=== PATIENT | male | born 1970 | race Caucasian/White ===

== ENCOUNTER 2024-07-22 12:16 | Inpatient (IN) ==
--- NOTE | 2024-07-22 12:54 | Emergency Department Note ---
Impression & Plan Diabetes mellitus with foot ulcer and gangrene, Thrombocytosis, PVD (peripheral vascular disease) ED Provider Note Provider: Mason Griffith MD CHIEF COMPLAINT: Right foot necrosis/infection HISTORY OF PRESENT ILLNESS: Patient is a 53-year-old gentleman with history of type 2 diabetes, hyperlipidemia, hypertension, reported CABG as well as right arterial bypass x 2 presenting here today reporting staff at the correction convinced him to seek evaluation for his right foot. States he noticed little blackness of the right foot in September approximately 11 months ago now. Has had bypass of the arteries in his right leg in 2012 and 2020 by his report. Previously on warfarin but not currently. States has been taking his medications and blood sugars have been in the 100s to 150s. Denies significant trauma. Since September this black area spread and in April saw Who had recommended amputation of this leg due to necrosis/infection. He did not wish for this. Now on the [facility] locally and they convinced him to come in to be evaluated today. States they did iodine and bandaged the foot and have been doing bandaging for some time. Patient reports he had blood work on Saturday. Denies fever or chills. Reports some pain to the right foot/leg. Has been using tramadol and Tylenol to present for pain. Does not want to have an amputation of his right foot but is agreeable to see a utilization review specialist. Patient does have pain with amputation. Outpatient blood work available from the correction indicate that he had a white blood cell count of 17,000 on Saturday, platelet count over 1 million, hemoglobin of 8.3, creatinine of 0.59, potassium 5.2, C-reactive protein of 14.5 and ESR of 127. PAST MEDICAL HISTORY: As noted above MEDICATIONS: Reviewed medication list SOCIAL HISTORY: Inmate's state correctional situation at this time, smoking history PHYSICAL EXAM: GENERAL: alert and oriented in no acute distress on stretcher handcuffed with guards at bedside Head: normocephalic and atraumatic EYES: No injection, discharge or icterus. EOMI. NECK: Trachea midline. Supple. ENT: Mucous membranes pink and moist. LUNGS: Airway patent. No retractions or tachypnea HEART: Regular rate and rhythm. No chest wall tenderness ABDOMEN: Soft and non-tender, without guarding or rebound. SKIN: Acyanotic, warm, dry, without rashes EXTREMITIES: With some trace swelling of the left lower extremity. The right lower extremity is well-healed scar in the right medial distal thigh to the right medial upper leg. There are some erythema around the ankle region and about [facility] into the midfoot there is changed to open wound and black necrosis as well as some redness and erythematous skin. Foul odor. No significant discharge appreciable. NEUROLOGICAL: No aphasia. No facial droop or slurred speech. Normal strength and tone in the extremities. Sensation to gross touch normal in extremities and actually does have some sensation even in the distal toes on the right foot. CONTINUOUS CARDIAC MONITORING: was ordered and showed a heart rate of 70s-80s bpm in normal sinus rhythm Patient's laboratory studies and imaging reviewed. Differential includes Cellulitis, abscess, MRSA infection, DVT, necrotizing fasciitis, gangrene, osteomyelitis, dermatitis, sepsis, PAD, as well as other pathologies. IMPRESSION/MEDICAL DECISION MAKING: Patient in no distress. Not febrile. Outpatient blood work in the correction noted and available paperwork showing an elevated inflammatory markers and white blood cell count. Patient denies fever however. Foot is in a poor state. There is evidence of some necrosis as well as looks like some areas of erythema and infection. Will obtain x-ray of this area and repeat blood work here today. Patient has had bypass x 2 in the past and while there is some erythema in the ankle region from the midfoot distally necrotic findings do question if there is vascular flow. Will obtain an ultrasound of the leg. None of this is acute and seems to have developed over some months. Blood work today with worsened white blood cell count of 20. ESR and CRP are both significantly elevated as well. Lactate is mildly elevated and 2 L of IV fluid ordered. Given the swelling in his legs including the left one without the gangrene infection wish to be careful to avoid fluid overload. Patient again does not want to have an amputation. Discussed with him bringing him to the hospital for formal consultation of orthopedic/podiatry/vascular for further possible information. This is chronic in nature and do not believe this is necrotizing fasciitis or rapidly expanding infection. There is not a lot of purulence for me to culture at this time. Lactate mildly elevated. Blood pressure initially low but soft and given IV fluid resuscitation and covered broadly with Zosyn and daptomycin in case evolving sepsis is occurring however. Patient again continues to state that he is going to with both of his feet. Arterial Doppler study pending results but believes likely with some amount of PAD given his history and presentation. DIAGNOSIS: Right foot gangrene, type 2 diabetes DISPOSITION: Hospitalist will evaluate Patient was agreeable with this plan. Past Med/Surg History Problem List (Updated 07/22/24 @ 18:14 by Mason Griffith M.D.) Thrombocytosis (Acute) Anemia CAD (coronary artery disease) HLD (hyperlipidemia) HTN (hypertension) Diabetes mellitus, type II PVD (peripheral vascular disease) (Acute) Osteomyelitis Gangrene of right foot Diabetes mellitus with foot ulcer and gangrene (Acute) Surgical History (Updated 07/22/24 @ 16:14 by Cecelia Tucker PA-C) History of vascular surgery History of heart bypass surgery Social History Smoking Status: Former smoker Hx Alcohol Use: No Hx Substance Use: Yes Last Used Substance Other:: stopped crack and thc in 2005 Preferred Language: Citizen Of [place] Communication Ability: Effective Contamination Consultant Required: No Beliefs That Will Affect Care: None Current Living Situation: Other Current Living Situation Comment: inmate Feels Safe at Home: Yes Safety Concerns: Feels Safe At This Time Assistive Devices: Wheelchair Allergies Allergies Allergy/AdvReac Type Severity Reaction Status Date / Time No Known Allergies Allergy Unverified 07/22/24 15:37 Home Meds Home Medications Medication Instructions Recorded Confirmed acetaminophen 500 mg tablet 1,000 mg PO QID 07/22/24 07/22/24 aspirin 81 mg tablet,delayed 81 mg PO DAILY 07/22/24 07/22/24 release clopidogrel 75 mg tablet 75 mg PO DAILY 07/22/24 07/22/24 gabapentin 300 mg capsule 300 mg PO BID 07/22/24 07/22/24 glipizide 2.5 mg tablet 2.5 mg PO DAILY 07/22/24 07/22/24 insulin regular human 100 unit/mL 1 sliding scale dose subcut 07/22/24 07/22/24 injection solution (Novolin R USEASDIRECTD Regular U-100 Insulin) metformin 1,000 mg tablet 1,000 mg PO BID 07/22/24 07/22/24 metoprolol tartrate 50 mg tablet 50 mg PO BID 07/22/24 07/22/24 rosuvastatin 20 mg tablet 20 mg PO HS 07/22/24 07/22/24 tramadol 50 mg tablet 100 mg PO TID 07/22/24 07/22/24 Results & Data (ED) Vital Signs Vital Signs - 24 hr 07/22/24 12:19 07/22/24 13:41 07/22/24 15:00 Temperature 36.6 C Temperature Source Temporal Artery Scan Pulse Rate 95 H Pulse Rate [Right Finger] 87 82 Pulse Rhythm [Right Finger] Regular Pulse Strength [Right Finger] Normal Respiratory Rate 18 19 16 Respiratory Effort / Characteristics Non-Labored Spontaneous Non-Labored Spontaneous Non-Labored Respiratory Depth Normal Normal Normal Respiratory Pattern Regular Regular Blood Pressure 112/69 Blood Pressure [Left Arm] 92/61 L 131/72 Blood Pressure Mean 83 Blood Pressure Mean [Left Arm] 71 91 Pulse Oximetry 100 100 100 Oxygen Delivery Method Room Air Room Air Room Air Sepsis Recent Fever Within 48 Hours No Sepsis New/Unexplained Change in Mental Status N/A Sepsis Action Taken by Nursing No Action Required Laboratory Data 07/22/24 13:10 07/22/24 13:10 Lab Results 07/22/24 07/22/24 07/22/24 Range/Units 13:10 15:02 15:08 WBC 20.00 H (4.8-10.8) K/ul RBC 3.62 L (4.70-6.10) M/uL Hgb 7.9 L (14.0-18.0) g/dl Hct 26.1 L (42.0-52.0) % MCV 72.1 L (80.0-100.0) fL MCH 21.8 L (25.0-34.0) pg MCHC 30.3 L (32.0-36.0) g/dL RDW Std Deviation 45.0 (36.4-46.3) fL RDW Coeff of Jaki 17.3 H (11.5-14.5) % Plt Count 1068 H* (130-400) K/uL MPV 9.1 L (9.4-12.4) fL Immature Gran % (Auto) 0.5 % Neut % (Auto) 70.2 % Lymph % (Auto) 21.8 % Evangeline % (Auto) 6.8 % Eos % (Auto) 0.4 % Baso % (Auto) 0.3 % Reticulocyte % (Auto) 1.52 (0.50-2.00) % Neut # (Auto) 14.06 H (1.40-6.50) K/uL Lymph # (Auto) 4.35 H (1.20-3.40) K/uL Evangeline # (Auto) 1.35 H (0.11-0.59) K/uL Eos # (Auto) 0.08 (0.00-0.50) K/uL Baso # (Auto) 0.06 (0.00-0.20) K/uL Reticulocyte # 0.060 (0.020-0.100) 10^6/uL Immature Gran # (Auto) 0.10 (0.01-0.20) K/uL Hypochromasia Present Microcytosis Present Stomatocytes 1+ ESR 117 H (0-20) mm/hr Sodium 133 L (136-145) mmol/L Potassium 4.3 (3.5-5.1) mmol/L Chloride 95 L (98-107) mmol/L Carbon Dioxide 28 (21-32) mmol/L Anion Gap 10 (3-11) BUN 16 (6-23) mg/dl Creatinine 0.61 (0.6-1.4) mg/dl Est Cr Clr Drug Dosing Not Reportable eGFR 116.29 BUN/Creatinine Ratio 26.2 H (10-20) Glucose 81 (70-99(Fasting)) mg/dl Lactate 2.6 H* 2.9 H* (0.4-2.0) mmol/L Calcium 9.4 (8.6-10.3) mg/dl Total Bilirubin 0.3 (0.2-1.0) mg/dl AST 8 L (13-39) U/L ALT 6 L (7-52) U/L Alkaline Phosphatase 114 H (34-104) U/L C-Reactive Protein 15.07 H (0-0.5) mg/dl Total Protein 8.0 (6.0-8.3) gm/dl Albumin 2.9 L (3.4-5.0) gm/dl Globulin 5.1 H (2.5-4.0) gm/dl Albumin/Globulin Ratio 0.6 L (0.9-2) Procalcitonin 0.12 (0-0.5) ng/ml SARS-CoV-2, RNA, NAAT NEGATIVE (NEGATIVE) Administered Medications Daptomycin 450 mg/ Syringe 9 mls @ 4.5 mls/min IV Q24H [facility]; Protocol Stop: 07/24/24 14:44 Last Admin: 07/22/24 15:08 Dose: 4.5 mls/min Documented By: KONSTANTIN Discontinued Medications Fentanyl Citrate (Fentanyl Citrate Pf 100 Mcg/2 Ml Vial) 25 mcg IV NOW STA Stop: 07/22/24 12:48 Last Admin: 07/22/24 13:20 Dose: 25 mcg Documented By: MIRIAM Piperacillin Sod/Tazobactam Sod (Zosyn) 4.5 gm in 100 mls @ 200 mls/hr IV NOW ONE; Protocol Stop: 07/22/24 14:17 Last Infusion: 07/22/24 16:05 Dose: Infused Documented By: Admin: 07/22/24 15:31 Dose: 200 mls/hr Documented By: KONSTANTIN Sodium Chloride (Nss) 1,000 mls @ 999 mls/hr IV .Q1H1M K[place]ILLE Stop: 07/22/24 16:00 Last Infusion: 07/22/24 16:26 Dose: Infused Documented By: Admin: 07/22/24 15:48 Dose: 999 mls/hr Documented By: Infusion: 07/22/24 15:30 Dose: Infused Documented By: Admin: 07/22/24 14:28 Dose: 999 mls/hr Documented By: CAROLINA Sodium Chloride (Nss) 500 mls @ 999 mls/hr IV .Q31M ONE Stop: 07/22/24 15:21 Last Infusion: 07/22/24 17:51 Dose: Infused Documented By: [facility] Admin: 07/22/24 16:26 Dose: 999 mls/hr Documented By: Imaging Data Radiologist's Impression: Duplex Scan Lower Extremity Artery 07/22/24 12:45 RIGHT LOWER EXTREMITY ARTERIAL DOPPLER ULTRASOUND CLINICAL HISTORY: Necrosis, hx art bypass x2 COMPARISON STUDY: No previous studies for comparison. TECHNIQUE: Color and duplex Doppler sonography of the arterial system of the right lower extremity was attempted. FINDINGS: This exam was significantly compromised given difficulty positioning. A mildly enlarged right inguinal lymph node measures 3.3 x 2.3 x 1.8 cm. This contains a fatty hilum and is likely reactive. There is extensive plaque within the right lower extremity. The right common femoral artery is patent with triphasic flow. The right superficial femoral and popliteal arteries are occluded, likely chronic. In addition, a right lower extremity bypass graft is also occluded. There is dampened, monophasic flow within the right posterior tibial and anterior tibial arteries through collaterals. The right dorsalis pedis and peroneal arteries are occluded. IMPRESSION: 1. Extensive atherosclerotic plaque within the right lower extremity with occlusion of the right superficial femoral and popliteal arteries, likely chronic. Technically difficult exam, as described above. 2. Age indeterminate occlusion of a right lower extremity bypass graft. 3. Significantly diminished flow within the right calf vessels with monophasic flow within the right anterior tibial and posterior tibial arteries. Occluded dorsalis pedis and peroneal arteries. ACT 112: Negative or not required by law. Electronically signed by: Braulio Kenny M.D. 07/22/2024 3:25 PM Foot X-Ray 07/22/24 12:45 XR foot RT min 3V routine HISTORY: 53 years-old Male necorsis/osteo? Chronic right foot pain with soft tissue infection COMPARISON: None TECHNIQUE: 3 views of the right foot FINDINGS: Diffuse soft tissue swelling with prominent amount of soft tissue gas throughout the forefoot and midfoot. Arterial calcifications. Postoperative changes including prior resection of the first distal phalanx and fifth metatarsal head. Demineralized appearance of the bones with mostly mild multifocal osteoarthritis. The soft tissue gas limits evaluation of the osseous structures of the forefoot. Equivocal small bony erosions involving the base of the fifth proximal phalanx. No acute fracture, dislocation or definitive additional acute osseous erosion identified by radiography. IMPRESSION: 1. Equivocal small osseous erosions/osteomyelitis within the base of the fifth proximal phalanx. 2. Diffuse soft tissue swelling with large amount of soft tissue gas suggestive of a gas-forming organism/gas gangrene. 3. Postoperative and degenerative changes as above. ACT 112: Negative or not required by law. The above report was generated using voice recognition software. It may contain grammatical, syntax or spelling errors. Electronically signed by: Kingsley Patel M.D. 07/22/2024 1:36 PM Discharge Plan Visit Data Chief Complaint: Foot Injury/Pain Stated Complaint: NECORTIC RT FOOT ED Provider: Mason Griffith Discharge Problem: Diabetes mellitus with foot ulcer and gangrene, Thrombocytosis, PVD (peripheral vascular disease) Patient Disposition: Admitted As Inpatient Discharge Instructions Interventions: ED Discharge Assessment Last Done: 07/22/24 16:40
[2024-07-22] MEDS: fentaNYL citrate PF 100 MCG/2 ML VIAL IV STA (13:20)
--- NOTE | 2024-07-22 13:37 | XRay Report ---
XR foot RT min 3V routine HISTORY: 53 years-old Male necorsis/osteo? Chronic right foot pain with soft tissue infection COMPARISON: None TECHNIQUE: 3 views of the right foot FINDINGS: Diffuse soft tissue swelling with prominent amount of soft tissue gas throughout the forefoot and mid foot. Arterial calcifications. Postoperative changes including prior resection of the first distal ph alanx and fifth metatarsal head. Demineralized appearance of the bones with mostly mild multifocal os teoarthritis. The soft tissue gas limits evaluation of the osseous structures of the forefoot. Equivocal small bony erosions involving the base of the fifth proximal phalanx. No acute fracture, di slocation or definitive additional acute osseous erosion identified by radiography. IMPRESSION: 1. Equivocal small osseous erosions/osteomyelitis within the base of the fifth proximal phalanx. 2. Diffuse soft tissue swelling with large amount of soft tissue gas suggestive of a gas-forming orga nism/gas gangrene. 3. Postoperative and degenerative changes as above. ACT 112: Negative or not required by law. The above report was generated using voice recognition software. It may contain grammatical, syntax o r spelling errors. Electronically signed by: Kingsley Patel M.D. 07/22/2024 1:36 PM
[2024-07-22 13:49] LABS: Hematocrit (blood only) 26.1 % (42.0-52.0); Hemoglobin 7.9 g/dl (14.0-18.0); Mean Corpuscular Hemoglobin 21.8 pg (25.0-34.0); Mean Corpuscular Hgb Conc 30.3 g/dL (32.0-36.0); Mean Corpuscular Volume 72.1 fL (80.0-100.0); Mean Platelet Volume 9.1 fL (9.4-12.4); Platelet Count 1068 K/uL (130-400); RDW Coefficient of Variation 17.3 % (11.5-14.5); Red Blood Count 3.62 M/uL (4.70-6.10)
[2024-07-22 13:57] LABS: Alanine Aminotransferase 6 U/L (7-52); Albumin Globulin Ratio 0.6 (0.9-2); Albumin Level 2.9 gm/dl (3.4-5.0); Alkaline Phosphatase 114 U/L (34-104); Anion Gap 10 (3-11); Aspartate Aminotransferase 8 U/L (13-39); BUN Creatinine Ratio 26.2 (10-20); Bilirubin,Total 0.3 mg/dl (0.2-1.0); Blood Urea Nitrogen 16 mg/dl (6-23); Calcium 9.4 mg/dl (8.6-10.3); Carbon Dioxide 28 mmol/L (21-32); Chloride 95 mmol/L (98-107); Globulin 5.1 gm/dl (2.5-4.0); Glucose 81 mg/dl (70-99(Fasting)); Potassium 4.3 mmol/L (3.5-5.1); Sodium 133 mmol/L (136-145)
[2024-07-22 14:17] LABS: Basophils # (auto) 0.06 K/uL (0.00-0.20); Basophils % (auto) 0.3 %; Eosinophils # (auto) 0.08 K/uL (0.00-0.50); Eosinophils % (auto) 0.4 %; Hypochromasia Present; Immature Granulocytes % (auto) 0.5 %; Lymphocytes # (auto) 4.35 K/uL (1.20-3.40); Lymphocytes % (auto) 21.8 %; Microcytosis Present; Monocytes # (auto) 1.35 K/uL (0.11-0.59); Monocytes % (auto) 6.8 %; Neutrophils # (auto) 14.06 K/uL (1.40-6.50); Neutrophils % (auto) 70.2 %; Stomatocytes 1+
[2024-07-22] MEDS: SODIUM CHLORIDE 0.9% 1,000 ML IV SCH (14:28)
[2024-07-22] MEDS: DAPTOmycin 450 MG in SYRINGE 0 ML IV SCH (15:08)
--- NOTE | 2024-07-22 15:26 | History & Physical Report ---
Date of Service July 22, 2024 Assessment & Plan (1) Gangrene of right foot: (2) Osteomyelitis: (3) PVD (peripheral vascular disease): Plan: Patient is 53 year old male with PMH DM II, HTN, HLD, CAD s/p CABG, PVD s/p reported right arterial bypass presented to ER with c/o "black right foot". Patient reports 09/2023 had noted black area to right toe which has progressed over the past 8 months. Was urged to seek urgent treatment for right foot in which he agreed to today. (4) Anemia: (5) Thrombocytosis: (6) Diabetes mellitus, type II: (7) HTN (hypertension): (8) HLD (hyperlipidemia): (9) CAD (coronary artery disease): Plan: Osteomyelitis Right foot gangrene In ER afebrile, P: 95, R: 18, BP 112/69, 100% on room air. WBC: 20, procalcitonin: 0.12, ESR: 117 Lactate: 2.6 CRP pending Blood cultures pending In ER given 2500 mL NSS, Zosyn, daptomycin, fentanyl 25 mcg Continue Zosyn, daptomycin MRI foot. Attempted MRI however patient reports unable to complete Lactate has normalized Ortho consult Vacular surgery consult CBC, CMP in am Microcytic Microchromic Anemia Thrombocytosis H/H: 7.9/26. Plt: 1068 Per review from [facility] labs on 07/13/2024: WBC: 18.5 Hgb: 8.7, PLT: 906, CRP: 20. Labs on 07/20/2024: WBC: 17.8, H/H: 8.3/30, PLT: 1009, CRP: 14.5, ESR: 127 Reports some blood tinged nasal mucous with blowing but no significant epistaxis Denies melena, hematochezia Anemia labs pending, peripheral smear pending Suspect underlying iron deficiency anemia. Possible Thrombocytosis secondary to infection and/or iron deficiency anemia Monitor H&H PVD History RLE bypass On aspirin, Plavix Hold rosuvastatin while on daptomycin Vascular surgery consult DM II Unknown A1c Hold home glipizide, metformin Novolog sliding scale per protocol A1c in AM CAD s/p CABG On aspirin, Plavix, metoprolol tartrate, Hold rosuvastatin while on daptomycin DVT Prophylaxis SCDs for now Admit telemetry DNR/DNI as per discussion with pt Pt was seen and care coordinated with Dr Melo. See addendum I spent a total of 79 minutes reviewing notes, outpatient records, labs, medication, coordinating, documenting and providing care for this patient excluding time spent in the performance of separately billed services. History of Present Illness Chief Complaint: "black right foot" Primary Care Provider: [facility], [facility]–1983 Camryn Patient is 53 year old male with PMH DM II, HTN, HLD, CAD s/p CABG, PVD s/p reported right arterial bypass presented to ER with c/o "black right foot". Patient reports 09/2023 had noted black area to right toe which has progressed over the past 8 months. He reports at previous correctional facility was treated with antibiotics and had seen a physician who had recommended amputation. Patient reports he was not interested in amputation and area has been treated with local wound care with iodine and bandaging.He denies any noted injury or trauma to the area. Patient reports area is painful to foot and ankle. Has been using Tylenol and tramadol for pain. He reports has had progressive edema to right lower extremity over the past several months. Denies any noted fever or chills. He reports decreased appetite. Reports recently transferred to [facility] and since being there was recommended for patient to seek urgent treatment for right foot in which he agreed to today.Denies N/V/D/C, OSWALD, dizziness, syncope, CP, SOB, palpitations, cough, sore throat, rhinorrhea, abdominal pain, extremity weakness, other rashes, urinary symptoms. Allergies Allergy/AdvReac Type Severity Reaction Status Date / Time No Known Allergies Allergy Unverified 07/22/24 15:37 Home Medications Medication Instructions Recorded Confirmed Type acetaminophen 500 mg tablet 1,000 mg PO QID 07/22/24 07/22/24 History aspirin 81 mg tablet,delayed 81 mg PO DAILY 07/22/24 07/22/24 History release clopidogrel 75 mg tablet 75 mg PO DAILY 07/22/24 07/22/24 History gabapentin 300 mg capsule 300 mg PO BID 07/22/24 07/22/24 History glipizide 2.5 mg tablet 2.5 mg PO DAILY 07/22/24 07/22/24 History insulin regular human 100 unit/mL 1 sliding scale dose subcut 07/22/24 07/22/24 History injection solution (Novolin R USEASDIRECTD Regular U-100 Insulin) metformin 1,000 mg tablet 1,000 mg PO BID 07/22/24 07/22/24 History metoprolol tartrate 50 mg tablet 50 mg PO BID 07/22/24 07/22/24 History rosuvastatin 20 mg tablet 20 mg PO HS 07/22/24 07/22/24 History tramadol 50 mg tablet 100 mg PO TID 07/22/24 07/22/24 History Past Med/Surg History Problem List Thrombocytosis (Acute) Anemia CAD (coronary artery disease) HLD (hyperlipidemia) HTN (hypertension) Diabetes mellitus, type II PVD (peripheral vascular disease) (Acute) Osteomyelitis Gangrene of right foot Diabetes mellitus with foot ulcer and gangrene (Acute) Surgical History History of vascular surgery History of heart bypass surgery Social History Smoking Status: Former smoker Hx Alcohol Use: No Hx Substance Use: Yes Last Used Substance Other:: stopped crack and thc in 2005 Preferred Language: [place] Communication Ability: Effective Instructor Private Required: No Beliefs That Will Affect Care: None Current Living Situation: Other Current Living Situation Comment: inmate Feels Safe at Home: Yes Safety Concerns: Feels Safe At This Time Assistive Devices: Wheelchair Review of Systems Review of Systems: All systems reviewed & are unremarkable except as noted in HPI & below Physical Exam Physical Exam: General: no distress, thin male appears older than stated age Head: normocephalic, atraumatic Eyes: conjunctiva non-injected, anicteric ENT: normal inspection external ears, nose, mucous membranes moist Neck: supple, trachea midline Lungs: clear, no respiratory distress, no wheezing/rhonchi/rales CV: RRR, no murmur Abd: normal BS, soft, non-tender Ext: no cyanosis. RLE: +healed surgical scar, +edema lower leg with faint erythema lower leg and ankle. right foot: +necrosis mid foot to distal toes, +ulceration lateral foot, +tenderness to palpation ankle and foot Neuro: A&O x 3, no focal deficits noted, normal affect Skin: warm, dry Results & Data Results & Data Vital Signs (Past 12 Hours) Vital Signs Temp Pulse Pulse Resp BP BP Pulse Ox 07/22/24 13:41 87 19 92/61 L 100 07/22/24 12:19 36.6 C 95 H 18 112/69 100 O2 Del Method 07/22/24 13:41 Room Air 07/22/24 12:19 Room Air Laboratory Results Short CBC 07/22/24 Range/Units 13:10 WBC 20.00 H (4.8-10.8) K/ul Hgb 7.9 L (14.0-18.0) g/dl Hct 26.1 L (42.0-52.0) % Plt Count 1068 H* (130-400) K/uL BMP 07/22/24 13:10 Sodium 133 L Potassium 4.3 Chloride 95 L Carbon Dioxide 28 BUN 16 Creatinine 0.61 Glucose 81 Calcium 9.4 Liver Function 07/22/24 Range/Units 13:10 Total Bilirubin 0.3 (0.2-1.0) mg/dl AST 8 L (13-39) U/L ALT 6 L (7-52) U/L Alkaline Phosphatase 114 H (34-104) U/L Albumin 2.9 L (3.4-5.0) gm/dl Diagnostic Findings Duplex Scan Lower Extremity Artery 07/22/24 12:45 RIGHT LOWER EXTREMITY ARTERIAL DOPPLER ULTRASOUND CLINICAL HISTORY: Necrosis, hx art bypass x2 COMPARISON STUDY: No previous studies for comparison. TECHNIQUE: Color and duplex Doppler sonography of the arterial system of the right lower extremity was attempted. FINDINGS: This exam was significantly compromised given difficulty positioning. A mildly enlarged right inguinal lymph node measures 3.3 x 2.3 x 1.8 cm. This contains a fatty hilum and is likely reactive. There is extensive plaque within the right lower extremity. The right common femoral artery is patent with triphasic flow. The right superficial femoral and popliteal arteries are occluded, likely chronic. In addition, a right lower extremity bypass graft is also occluded. There is dampened, monophasic flow within the right posterior ti bial and anterior tibial arteries through collaterals. The right dorsalis pedis and peroneal arteries are occluded. IMPRESSION: 1. Extensive atherosclerotic plaque within the right lower extremity with occlusion of the right superficial femoral and popliteal arteries, likely chronic. Technically difficult exam, as described above. 2. Age indeterminate occlusion of a right lower extremity bypass graft. 3. Significantly diminished flow within the right calf vessels with monophasic flow within the right anterior tibial and posterior tibial arteries. Occluded dorsalis pedis and peroneal arteries. ACT 112: Negative or not required by law. Electronically signed by: Braulio Kenny M.D. 07/22/2024 3:25 PM Foot X-Ray 07/22/24 12:45 XR foot RT min 3V routine HISTORY: 53 years-old Male necorsis/osteo? Chronic right foot pain with soft tissue infection COMPARISON: None TECHNIQUE: 3 views of the right foot FINDINGS: Diffuse soft tissue swelling with prominent amount of soft tissue gas throughout the forefoot and midfoot. Arterial calcifications. Postoperative changes including prior resection of the first distal phalanx and fifth metatarsal head. Demineralized appearance of the bones with mostly mild multifocal osteoarthritis. The soft tissue gas limits evaluation of the osseous structures of the forefoot. Equivocal small bony erosions involving the base of the fifth proximal phalanx. No acute fracture, dislocation or definitive additional acute osseous erosion identified by radiography. IMPRESSION: 1. Equivocal small osseous erosions/osteomyelitis within the base of the fifth proximal phalanx. 2. Diffuse soft tissue swelling with large amount of soft tissue gas suggestive of a gas-forming organism/gas gangrene. 3. Postoperative and degenerative changes as above. ACT 112: Negative or not required by law. The above report was generated using voice recognition software. It may contain grammatical, syntax or spelling errors. Electronically signed by: Kingsley Patel M.D. 07/22/2024 1:36 PM Orbit X-Ray 07/22/24 16:53 HISTORY: Screening for foreign body. TECHNIQUE: Orbits, 3 views. COMPARISON: None. FINDINGS: No radiopaque orbital foreign body. The nasal bone and anterior nasal spine appear intact. The sella is not expanded. Degenerative changes of the cervical spine. Poor dentition with multiple fractured teeth and missing teeth. IMPRESSION: No radiopaque orbital foreign body. Electronically signed by Fabiano Su 07-22-2024 6:37 PM Code Status & VTE Plan VTE Prophylaxis Plan VTE Prophylaxis will be ordered: Yes Supervising Physician Co-Signing Physician Notes 07/22/2024 The patient was seen and examined in the emergency room He has been complaining of right foot ulceration and black toes for a long time He was seen by the physician at the facility and was advised to come to emergency room for further evaluation Complains of some pain in the right foot but does not have any fever and or chills Has not been putting any pressure on the right foot for a long time On examination lying in bed without any apparent distress Hemodynamically stable and is afebrile Chestclear to auscultate bilaterally HeartS1, S2 regular Abdomenbenign Extremitiesright foot and lower part of the leg is swollen. Gangrene involving the toes of the right foot with associated swelling and redness. CNSalert, awake and oriented x 3. no focal sensory and motor deficit appreciated His admission labs, and imaging studies reviewed Has right toes dry gangrene with gas-forming organism and possible osteomyelitis Extensive atherosclerotic plaque within the right lower extremity with occlusion of the right superficial femoral and popliteal arteries likely chronic- severe peripheral artery disease Likely sepsis on presentation Started on intravenous antibiotic and vascular surgery will be consulted and also orthopedic surgery for possible debridement and amputation Agree with assessment and plan as outlined above by Cecelia Russell PA-C and take the full responsible of the care DR Val Melo
--- NOTE | 2024-07-22 15:27 | Ultrasound Report ---
RIGHT LOWER EXTREMITY ARTERIAL DOPPLER ULTRASOUND CLINICAL HISTORY: Necrosis, hx art bypass x2 COMPARISON STUDY: No previous studies for comparison. TECHNIQUE: Color and duplex Doppler sonography of the arterial system of the right lower extremity wa s attempted. FINDINGS: This exam was significantly compromised given difficulty positioning. A mildly enlarged rig ht inguinal lymph node measures 3.3 x 2.3 x 1.8 cm. This contains a fatty hilum and is likely reactiv e. There is extensive plaque within the right lower extremity. The right common femoral artery is pat ent with triphasic flow. The right superficial femoral and popliteal arteries are occluded, likely ch ronic. In addition, a right lower extremity bypass graft is also occluded. There is dampened, monopha sic flow within the right posterior tibial and anterior tibial arteries through collaterals. The righ t dorsalis pedis and peroneal arteries are occluded. IMPRESSION: 1. Extensive atherosclerotic plaque within the right lower extremity with occlusion of the right supe rficial femoral and popliteal arteries, likely chronic. Technically difficult exam, as described abov e. 2. Age indeterminate occlusion of a right lower extremity bypass graft. 3. Significantly diminished flow within the right calf vessels with monophasic flow within the right anterior tibial and posterior tibial arteries. Occluded dorsalis pedis and peroneal arteries. ACT 112: Negative or not required by law. Electronically signed by: Braulio Kenny M.D. 07/22/2024 3:25 PM
[2024-07-22] MEDS: PIPERACILLIN/TAZOBACTAM 4.5 GM/100 ML BAG IV ONE (15:31)
[2024-07-22] MEDS: SODIUM CHLORIDE 0.9% 500 ML IV ONE (16:26)
[2024-07-22 17:14] LABS: Reticulocyte % 1.52 % (0.50-2.00)
[2024-07-22] MEDS: CARBOHYDRATES FOR HYPOGLYCEMIA PO PRN (17:40)
[2024-07-22] MEDS ORDERED: GLUCAGON FOR INJ 1 MG VIAL SQ PRN (17:51)
[2024-07-22] MEDS ORDERED: POLYETHYLENE (MIRALAX) 17 GM PACK PO PRN (17:51)
[2024-07-22] MEDS ORDERED: GLUCOSE 40% GEL 15 GM TUBE PO PRN (17:51)
[2024-07-22] MEDS ORDERED: DEXTROSE 50% 50 ML SYRINGE IV PRN (17:51)
[2024-07-22] MEDS ORDERED: ONDANSETRON INJ 2 MG/ML 2 ML VIAL IV PRN (17:51)
[2024-07-22] MEDS ORDERED: GLUCOSE 10 TAB/TUBE PO PRN (17:51)
[2024-07-22 18:07] LABS: C Reactive Protein 15.07 mg/dl (0-0.5)
[2024-07-22] MEDS: INSULIN ASPART PER UNIT CHARGE SC SCH (18:37)
[2024-07-22] MEDS: ACETAMINOPHEN 500 MG TAB PO SCH (18:38)
[2024-07-22] MEDS: D5W AND NSS 1,000 ML IV SCH (18:38)
--- NOTE | 2024-07-22 18:38 | XRay Report ---
HISTORY: Screening for foreign body. TECHNIQUE: Orbits, 3 views. COMPARISON: None. FINDINGS: No radiopaque orbital foreign body. The nasal bone and anterior nasal spine appear intact. The sella is not expanded. Degenerative changes of the cervical spine. Poor dentition with multiple fractured teeth and missing teeth. IMPRESSION: No radiopaque orbital foreign body. Electronically signed by Fabiano Su 07-22-2024 6:37 PM
[2024-07-22 18:56] LABS: Ferritin 340.5 ng/ml (8-388)
[2024-07-22] MEDS: METOPROLOL TARTRATE 50 MG TAB PO SCH (20:39)
[2024-07-22] MEDS: PIPERACILLIN/TAZOBACTAM 4.5 GM/100 ML BAG IV SCH (20:39)
[2024-07-22] MEDS: GABAPENTIN 300 MG CAP PO SCH (20:39)
[2024-07-22 20:49] LABS: Folate (Folic Acid),Ser orPlas 10.08 ng/ml (>5.38)
--- NOTE | 2024-07-23 06:44 | Orthopedic Consultation ---
Date of Consultation July 23, 2024 Assessment & Plan (1) Gangrene of right foot: IMPRESSION: Right foot gangrene with severe vascular compromise, chronic. PLAN: Continue care per Hospitalist service. Patient will require amputation, this is a vascular issue, vascular has been consulted, I will defer to them, and sign off. Patient does not want an amputation Present on Admission?: Yes History of Present Illness Reason for Consultation: Black right foot Requesting Physician: Natasha Glynn MD Attending Physician: Logan Melo MD History of Present Illness 53 yo inmate with chronic black toes, right foot was admitted to hospitalist service with black foot. Patient has a h/o vascular surgery x 2 and heart bypass surgery. Allergies Allergy/AdvReac Type Severity Reaction Status Date / Time No Known Allergies Allergy Unverified 07/22/24 15:37 Home Medications Medication Instructions Recorded Confirmed Type acetaminophen 500 mg tablet 1,000 mg PO QID 07/22/24 07/22/24 History aspirin 81 mg tablet,delayed 81 mg PO DAILY 07/22/24 07/22/24 History release clopidogrel 75 mg tablet 75 mg PO DAILY 07/22/24 07/22/24 History gabapentin 300 mg capsule 300 mg PO BID 07/22/24 07/22/24 History glipizide 2.5 mg tablet 2.5 mg PO DAILY 07/22/24 07/22/24 History insulin regular human 100 unit/mL 1 sliding scale dose subcut 07/22/24 07/22/24 History injection solution (Novolin R USEASDIRECTD Regular U-100 Insulin) metformin 1,000 mg tablet 1,000 mg PO BID 07/22/24 07/22/24 History metoprolol tartrate 50 mg tablet 50 mg PO BID 07/22/24 07/22/24 History rosuvastatin 20 mg tablet 20 mg PO HS 07/22/24 07/22/24 History tramadol 50 mg tablet 100 mg PO TID 07/22/24 07/22/24 History Patient History Surgical History History of vascular surgery History of heart bypass surgery Social History Smoking Status: Former smoker Hx Alcohol Use: No Hx Substance Use: Yes Last Used Substance Other:: stopped crack and thc in 2005 Preferred Language: Japanese Communication Ability: Effective 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 No motor to toes or sensation. + Swelling from below knee. Previous vascular incisions well healed Results & Data Vital Signs (Past 12 Hours) Vital Signs Temp Pulse Pulse Resp BP Pulse Ox O2 Del Method 07/23/24 03:16 36.8 C 79 17 164/72 H 100 Room Air 07/22/24 22:34 85 07/22/24 22:33 37.1 C 82 19 150/72 H 100 Room Air 07/22/24 19:21 37.2 C 91 H 19 144/71 H 99 Room Air Laboratory Results Laboratory Results WBC 20.00 K/ul (4.8-10.8) H 07/22/24 13:10 RBC 3.62 M/uL (4.70-6.10) L 07/22/24 13:10 Hgb 7.9 g/dl (14.0-18.0) L 07/22/24 13:10 Hct 26.1 % (42.0-52.0) L 07/22/24 13:10 MCV 72.1 fL (80.0-100.0) L 07/22/24 13:10 MCH 21.8 pg (25.0-34.0) L 07/22/24 13:10 MCHC 30.3 g/dL (32.0-36.0) L 07/22/24 13:10 RDW Std Deviation 45.0 fL (36.4-46.3) 07/22/24 13:10 RDW Coeff of Jaki 17.3 % (11.5-14.5) H 07/22/24 13:10 Plt Count 1068 K/uL (130-400) H* 07/22/24 13:10 MPV 9.1 fL (9.4-12.4) L 07/22/24 13:10 Immature Gran % (Auto) 0.5 % 07/22/24 13:10 Neut % (Auto) 70.2 % 07/22/24 13:10 Lymph % (Auto) 21.8 % 07/22/24 13:10 Edgar % (Auto) 6.8 % 07/22/24 13:10 Eos % (Auto) 0.4 % 07/22/24 13:10 Baso % (Auto) 0.3 % 07/22/24 13:10 Reticulocyte % (Auto) 1.52 % (0.50-2.00) 07/22/24 13:10 Neut # (Auto) 14.06 K/uL (1.40-6.50) H 07/22/24 13:10 Lymph # (Auto) 4.35 K/uL (1.20-3.40) H 07/22/24 13:10 Edgar # (Auto) 1.35 K/uL (0.11-0.59) H 07/22/24 13:10 Eos # (Auto) 0.08 K/uL (0.00-0.50) 07/22/24 13:10 Baso # (Auto) 0.06 K/uL (0.00-0.20) 07/22/24 13:10 Reticulocyte # 0.060 10^6/uL (0.020-0.100) 07/22/24 13:10 Immature Gran # (Auto) 0.10 K/uL (0.01-0.20) 07/22/24 13:10 Hypochromasia Present 07/22/24 13:10 Microcytosis Present 07/22/24 13:10 Stomatocytes 1+ 07/22/24 13:10 ESR 117 mm/hr (0-20) H 07/22/24 13:10 Sodium 133 mmol/L (136-145) L 07/22/24 13:10 Potassium 4.3 mmol/L (3.5-5.1) 07/22/24 13:10 Chloride 95 mmol/L (98-107) L 07/22/24 13:10 Carbon Dioxide 28 mmol/L (21-32) 07/22/24 13:10 Anion Gap 10 (3-11) 07/22/24 13:10 BUN 16 mg/dl (6-23) 07/22/24 13:10 Creatinine 0.61 mg/dl (0.6-1.4) 07/22/24 13:10 Est Cr Clr Drug Dosing Not Reportable 07/22/24 13:10 eGFR 116.29 07/22/24 13:10 BUN/Creatinine Ratio 26.2 (10-20) H 07/22/24 13:10 Glucose 81 mg/dl (70-99(Fasting)) 07/22/24 13:10 POC Glucose 99 mg/dl (70-99) 07/22/24 20:39 Lactate 1.9 mmol/L (0.4-2.0) 07/22/24 19:55 Calcium 9.4 mg/dl (8.6-10.3) 07/22/24 13:10 Iron 17 mcg/dl (35-175) L 07/22/24 15:56 Transferrin 133 mg/dl (200-360) L 07/22/24 15:56 Ferritin 340.5 ng/ml (8-388) 07/22/24 15:56 Total Bilirubin 0.3 mg/dl (0.2-1.0) 07/22/24 13:10 AST 8 U/L (13-39) L 07/22/24 13:10 ALT 6 U/L (7-52) L 07/22/24 13:10 Alkaline Phosphatase 114 U/L (34-104) H 07/22/24 13:10 C-Reactive Protein 15.07 mg/dl (0-0.5) H 07/22/24 13:10 Total Protein 8.0 gm/dl (6.0-8.3) 07/22/24 13:10 Albumin 2.9 gm/dl (3.4-5.0) L 07/22/24 13:10 Globulin 5.1 gm/dl (2.5-4.0) H 07/22/24 13:10 Albumin/Globulin Ratio 0.6 (0.9-2) L 07/22/24 13:10 Vitamin B12 267 pg/ml (180-914) 07/22/24 19:55 Folate 10.08 ng/ml (>5.38) 07/22/24 19:55 Procalcitonin 0.12 ng/ml (0-0.5) 07/22/24 13:10 Nasal Screen MRSA (PCR) Negative (Negative) 07/22/24 17:27 SARS-CoV-2, RNA, NAAT NEGATIVE (NEGATIVE) 07/22/24 15:08 Impressions Duplex Scan Lower Extremity Artery 07/22/24 12:45 RIGHT LOWER EXTREMITY ARTERIAL DOPPLER ULTRASOUND CLINICAL HISTORY: Necrosis, hx art bypass x2 COMPARISON STUDY: No previous studies for comparison. TECHNIQUE: Color and duplex Doppler sonography of the arterial system of the right lower extremity was attempted. FINDINGS: This exam was significantly compromised given difficulty positioning. A mildly enlarged right inguinal lymph node measures 3.3 x 2.3 x 1.8 cm. This contains a fatty hilum and is likely reactive. There is extensive plaque within the right lower extremity. The right common femoral artery is patent with triphasic flow. The right superficial femoral and popliteal arteries are occluded, likely chronic. In addition, a right lower extremity bypass graft is also occluded. There is dampened, monophasic flow within the right posterior tibial and anterior tibial arteries through collaterals. The right dorsalis pedis and peroneal arteries are occluded. IMPRESSION: 1. Extensive atherosclerotic plaque within the right lower extremity with occlusion of the right superficial femoral and popliteal arteries, likely chronic. Technically difficult exam, as described above. 2. Age indeterminate occlusion of a right lower extremity bypass graft. 3. Significantly diminished flow within the right calf vessels with monophasic flow within the right anterior tibial and posterior tibial arteries. Occluded dorsalis pedis and peroneal arteries. ACT 112: Negative or not required by law. Electronically signed by: Braulio Kenny M.D. 07/22/2024 3:25 PM Foot X-Ray 07/22/24 12:45 XR foot RT min 3V routine HISTORY: 53 years-old Male necorsis/osteo? Chronic right foot pain with soft tissue infection COMPARISON: None TECHNIQUE: 3 views of the right foot FINDINGS: Diffuse soft tissue swelling with prominent amount of soft tissue gas throughout the forefoot and midfoot. Arterial calcifications. Postoperative changes including prior resection of the first distal phalanx and fifth metatarsal head. Demineralized appearance of the bones with mostly mild multifocal osteoarthritis. The soft tissue gas limits evaluation of the osseous structures of the forefoot. Equivocal small bony erosions involving the base of the fifth proximal phalanx. No acute fracture, dislocation or definitive additional acute osseous erosion identified by radiography. IMPRESSION: 1. Equivocal small osseous erosions/osteomyelitis within the base of the fifth proximal phalanx. 2. Diffuse soft tissue swelling with large amount of soft tissue gas suggestive of a gas-forming organism/gas gangrene. 3. Postoperative and degenerative changes as above. ACT 112: Negative or not required by law. The above report was generated using voice recognition software. It may contain grammatical, syntax or spelling errors. Electronically signed by: Kingsley Patel M.D. 07/22/2024 1:36 PM Orbit X-Ray 07/22/24 16:53 HISTORY: Screening for foreign body. TECHNIQUE: Orbits, 3 views. COMPARISON: None. FINDINGS: No radiopaque orbital foreign body. The nasal bone and anterior nasal spine appear intact. The sella is not expanded. Degenerative changes of the cervical spine. Poor dentition with multiple fractured teeth and missing teeth. IMPRESSION: No radiopaque orbital foreign body. Electronically signed by Fabiano Su 07-22-2024 6:37 PM
[2024-07-23 07:29] LABS: Estimated Average Glucose 206 mg/dl; Hemoglobin A1C 8.8 % (4.5-5.6)
[2024-07-23 07:33] LABS: Albumin Level 2.7 gm/dl (3.4-5.0); Anion Gap 12 (3-11); Bilirubin,Total 0.3 mg/dl (0.2-1.0); Calcium 8.6 mg/dl (8.6-10.3); Carbon Dioxide 17 mmol/L (21-32); Chloride 110 mmol/L (98-107); Sodium 139 mmol/L (136-145)
[2024-07-23 07:37] LABS: Basophils # (auto) 0.03 K/uL (0.00-0.20); Basophils % (auto) 0.2 %; Eosinophils # (auto) 0.05 K/uL (0.00-0.50); Eosinophils % (auto) 0.4 %; Immature Granulocytes # (auto) 0.08 K/uL (0.01-0.20); Immature Granulocytes % (auto) 0.6 %; Lymphocytes % (auto) 19.4 %; Monocytes # (auto) 0.93 K/uL (0.11-0.59); Monocytes % (auto) 6.9 %; Neutrophils # (auto) 9.72 K/uL (1.40-6.50); Neutrophils % (auto) 72.5 %
[2024-07-23 07:39] LABS: Blood Urea Nitrogen 10 mg/dl (6-23); Glucose 132 mg/dl (70-99(Fasting))
[2024-07-23 07:44] LABS: Alanine Aminotransferase < 3 U/L (7-52); Albumin Globulin Ratio 0.6 (0.9-2); Alkaline Phosphatase 96 U/L (34-104); Aspartate Aminotransferase 9 U/L (13-39); Globulin 4.5 gm/dl (2.5-4.0); Total Protein 7.2 gm/dl (6.0-8.3)
[2024-07-23 08:12] LABS: Hematocrit (blood only) 27.9 % (42.0-52.0); Hemoglobin 8.1 g/dl (14.0-18.0); Mean Corpuscular Hemoglobin 21.7 pg (25.0-34.0); Mean Corpuscular Volume 74.6 fL (80.0-100.0); Mean Platelet Volume 8.9 fL (9.4-12.4); Platelet Count 893 K/uL (130-400); RDW Coefficient of Variation 17.7 % (11.5-14.5); RDW Standard Deviation 47.9 fL (36.4-46.3); Red Blood Count 3.74 M/uL (4.70-6.10); White Blood Count 13.41 K/ul (4.8-10.8)
[2024-07-23] MEDS: ASPIRIN 81 MG ECTAB PO SCH (09:28)
[2024-07-23] MEDS: CLOPIDOGREL BISULFATE 75 MG TAB PO SCH (09:28)
[2024-07-23] MEDS: MoRPHine SULFATE 2 MG/ML CARP IV PRN (12:25)
--- NOTE | 2024-07-23 12:58 | Hospitalist Progress Note ---
Date of Service July 23, 2024 Assessment & Plan (1) Gangrene of right foot: (2) Osteomyelitis: (3) PVD (peripheral vascular disease): (4) Anemia: (5) Thrombocytosis: (6) Diabetes mellitus, type II: (7) HTN (hypertension): (8) HLD (hyperlipidemia): (9) CAD (coronary artery disease): Plan: 53 year old male with PMH DM II, HTN, HLD, CAD s/p CABG, PVD s/p reported right arterial bypass presented to ER with c/o "black right foot". Patient reports 09/2023 had noted black area to right toe which has progressed over the past 8 months. Right foot gangrene Osteomyelitis In ER afebrile, P: 95, R: 18, BP 112/69, 100% on room air. WBC: 20, procalcitonin: 0.12, ESR: 117 Lactate: 2.6 Foot XR noted diffuse tiss soft tiss swelling with large amount of soft tiss gas suggestive of gas-forming organisms/gas gangrene. Osteomyelitis in base of 5th proximal phalanx MRI foot. Attempted MRI however patient reports unable to complete Lactate has normalized Continue Zosyn, daptomycin Ortho eval noted. Ortho recommended vasc surgery eval Patient declining surgery at this time despite extensive conversation about the need and risks of sepsis and without it Awaiting Vasc surg eval Microcytic Anemia Thrombocytosis H/H: 7.9/26. Plt: 1068 Per review from [facility] labs on 07/13/2024: WBC: 18.5 Hgb: 8.7, PLT: 906, CRP: 20. Labs on 07/20/2024: WBC: 17.8, H/H: 8.3/30, PLT: 1009, CRP: 14.5, ESR: 127 Work up suggestive of iron deficiency anemia Start ferrous sulphate PVD History RLE bypass On aspirin, Plavix Hold rosuvastatin while on daptomycin Awaiting Vascular surgery consult DM II Hold home glipizide, metformin Novolog sliding scale per protocol A1c is 8.8 CAD s/p CABG On aspirin, Plavix, metoprolol tartrate, Hold rosuvastatin while on daptomycin DVT Prophylaxis SCDs for now I called physician at the [facility] and updated him I spent a total of 50 minutes coordinating, documenting and providing care for this patient excluding time spent in performance of separately billed services Admission and Anticipated Discharge Date Admission Date: July 22, 2024 Subjective Patient seen and examined Reports right foot pain Denied any other complaints Reported wound started in September 2023 as a black spot. Got worse in October with pain. Had been hospitalized at different hospital. Stated he was told he needed revascularization but did not get it done. Reported he had a previous history of revascularization in the past prior to current wound History of smoking 1.5ppd since teenage years (with about 10 year break some years ago) but finally quit last year when he was incarcerated Physical Exam Constitutional: + well hydrated; no acute distress Eyes: PERRL, conjunctivae normal, anicteric sclerae ENMT: external ear and nose normal, oropharynx normal Respiratory: normal respiratory effort, lungs clear to auscultation Cardiovascular: Rate/Rhythm: regular rate and regular rhythm Gastrointestinal (Abdomen): normal bowel sounds, soft, nontender, no hepatosplenomegaly Musculoskeletal: Right foot: Black midfoot to distal toes. Swelling in ankle Vascular scar on right medial knee/thigh Neurologic: PERRL, EOMI, accommodation nl, no face palsy, no dysarthria Psychiatric: A+Ox3, euthymic affect Results & Data Results & Data Vital Signs (Past 12 Hours) Vital Signs Temp Pulse Resp BP BP Pulse Ox O2 Del Method 07/23/24 10:39 36.8 C 79 17 112/71 100 Room Air 07/23/24 07:13 36.5 C 79 17 167/93 H 99 Room Air 07/23/24 03:16 36.8 C 79 17 164/72 H 100 Room Air Laboratory Results Abnormal lab results 07/22/24 07/22/24 07/22/24 Range/Units 13:10 15:02 15:56 WBC 20.00 H (4.8-10.8) K/ul RBC 3.62 L (4.70-6.10) M/uL Hgb 7.9 L (14.0-18.0) g/dl Hct 26.1 L (42.0-52.0) % MCV 72.1 L (80.0-100.0) fL MCH 21.8 L (25.0-34.0) pg MCHC 30.3 L (32.0-36.0) g/dL RDW Std Deviation (36.4-46.3) fL RDW Coeff of Jaki 17.3 H (11.5-14.5) % Plt Count 1068 H* (130-400) K/uL MPV 9.1 L (9.4-12.4) fL Neut # (Auto) 14.06 H (1.40-6.50) K/uL Lymph # (Auto) 4.35 H (1.20-3.40) K/uL [place] # (Auto) 1.35 H (0.11-0.59) K/uL ESR 117 H (0-20) mm/hr Sodium 133 L (136-145) mmol/L Chloride 95 L (98-107) mmol/L Carbon Dioxide (21-32) mmol/L Anion Gap (3-11) Creatinine (0.6-1.4) mg/dl BUN/Creatinine Ratio 26.2 H (10-20) Glucose (70-99(Fasting)) mg/dl POC Glucose (70-99) mg/dl Hemoglobin A1c (4.5-5.6) % Lactate 2.6 H* 2.9 H* (0.4-2.0) mmol/L Iron 17 L (35-175) mcg/dl Transferrin 133 L (200-360) mg/dl AST 8 L (13-39) U/L ALT 6 L (7-52) U/L Alkaline Phosphatase 114 H (34-104) U/L C-Reactive Protein 15.07 H (0-0.5) mg/dl Albumin 2.9 L (3.4-5.0) gm/dl Globulin 5.1 H (2.5-4.0) gm/dl Albumin/Globulin Ratio 0.6 L (0.9-2) Stool Occult Bld Scrn (Negative) 07/22/24 07/22/24 07/23/24 Range/Units 17:38 17:40 06:40 WBC 13.41 H (4.8-10.8) K/ul RBC 3.74 L (4.70-6.10) M/uL Hgb 8.1 L (14.0-18.0) g/dl Hct 27.9 L (42.0-52.0) % MCV 74.6 L (80.0-100.0) fL MCH 21.7 L (25.0-34.0) pg MCHC 29.0 L (32.0-36.0) g/dL RDW Std Deviation 47.9 H (36.4-46.3) fL RDW Coeff of Jaki 17.7 H (11.5-14.5) % Plt Count 893 H (130-400) K/uL MPV 8.9 L (9.4-12.4) fL Neut # (Auto) 9.72 H (1.40-6.50) K/uL Lymph # (Auto) (1.20-3.40) K/uL [place] # (Auto) 0.93 H (0.11-0.59) K/uL ESR (0-20) mm/hr Sodium (136-145) mmol/L Chloride 110 H (98-107) mmol/L Carbon Dioxide 17 L (21-32) mmol/L Anion Gap 12 H (3-11) Creatinine 0.50 L (0.6-1.4) mg/dl BUN/Creatinine Ratio (10-20) Glucose 132 H (70-99(Fasting)) mg/dl POC Glucose 68 L* 63 L* (70-99) mg/dl Hemoglobin A1c 8.8 H (4.5-5.6) % Lactate (0.4-2.0) mmol/L Iron (35-175) mcg/dl Transferrin (200-360) mg/dl AST 9 L (13-39) U/L ALT < 3 L (7-52) U/L Alkaline Phosphatase (34-104) U/L C-Reactive Protein (0-0.5) mg/dl Albumin 2.7 L (3.4-5.0) gm/dl Globulin 4.5 H (2.5-4.0) gm/dl Albumin/Globulin Ratio 0.6 L (0.9-2) Stool Occult Bld Scrn (Negative) 07/23/24 07/23/24 07/23/24 Range/Units 06:58 11:05 12:20 WBC (4.8-10.8) K/ul RBC (4.70-6.10) M/uL Hgb (14.0-18.0) g/dl Hct (42.0-52.0) % MCV (80.0-100.0) fL MCH (25.0-34.0) pg MCHC (32.0-36.0) g/dL RDW Std Deviation (36.4-46.3) fL RDW Coeff of Jaki (11.5-14.5) % Plt Count (130-400) K/uL MPV (9.4-12.4) fL Neut # (Auto) (1.40-6.50) K/uL Lymph # (Auto) (1.20-3.40) K/uL [place] # (Auto) (0.11-0.59) K/uL ESR (0-20) mm/hr Sodium (136-145) mmol/L Chloride (98-107) mmol/L Carbon Dioxide (21-32) mmol/L Anion Gap (3-11) Creatinine (0.6-1.4) mg/dl BUN/Creatinine Ratio (10-20) Glucose (70-99(Fasting)) mg/dl POC Glucose 116 H 161 H (70-99) mg/dl Hemoglobin A1c (4.5-5.6) % Lactate (0.4-2.0) mmol/L Iron (35-175) mcg/dl Transferrin (200-360) mg/dl AST (13-39) U/L ALT (7-52) U/L Alkaline Phosphatase (34-104) U/L C-Reactive Protein (0-0.5) mg/dl Albumin (3.4-5.0) gm/dl Globulin (2.5-4.0) gm/dl Albumin/Globulin Ratio (0.9-2) Stool Occult Bld Scrn Positive A (Negative)
[2024-07-23] MEDS: FERROUS SULFATE 325 MG TAB PO SCH (14:24)
--- NOTE | 2024-07-23 14:33 | Consultation ---
Date of Consultation July 23, 2024 Assessment & Plan (1) Gangrene of right foot: right foot is not salvageable. Due to previous vascular procedures and the results of the ultrasound and physical exam, i would recommend an above the knee amputation of the right lower extremity. At this point the patient is aware he needs the AKA and was told that by his last vascular surgeon. He refuses to have it done at this time. No other treatment can be done other than painting the necrotic areas with betadine. If he should change his mind and agree to amputation, the correctional institution can notify my office. History of Present Illness Reason for Consultation: Gangrene right foot Attending Physician: Harmony Carreon MD History of Present Illness This is a 53yo diabetic male who smokes. He has had a right leg bypass of prosthetic in 2017 followed by a vein bypass in 2019. Both failed. He developed gangrene of the right foot and was told he needed an amputation. He now presents with worsening gangrene of the foot with rest pain. Allergies Allergy/AdvReac Type Severity Reaction Status Date / Time No Known Allergies Allergy Unverified 07/22/24 15:37 Home Medications Medication Instructions Recorded Confirmed Type acetaminophen 500 mg tablet 1,000 mg PO QID 07/22/24 07/22/24 History aspirin 81 mg tablet,delayed 81 mg PO DAILY 07/22/24 07/22/24 History release clopidogrel 75 mg tablet 75 mg PO DAILY 07/22/24 07/22/24 History gabapentin 300 mg capsule 300 mg PO BID 07/22/24 07/22/24 History glipizide 2.5 mg tablet 2.5 mg PO DAILY 07/22/24 07/22/24 History insulin regular human 100 unit/mL 1 sliding scale dose subcut 07/22/24 07/22/24 History injection solution (Novolin R USEASDIRECTD Regular U-100 Insulin) metformin 1,000 mg tablet 1,000 mg PO BID 07/22/24 07/22/24 History metoprolol tartrate 50 mg tablet 50 mg PO BID 07/22/24 07/22/24 History rosuvastatin 20 mg tablet 20 mg PO HS 07/22/24 07/22/24 History tramadol 50 mg tablet 100 mg PO TID 07/22/24 07/22/24 History Patient History Surgical History History of vascular surgery History of heart bypass surgery Social History Smoking Status: Former smoker Hx Alcohol Use: No Hx Substance Use: Yes Last Used Substance Other:: stopped crack and thc in 2005 Preferred Language: Senegalese Communication Ability: Effective 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 Skin is warmer at knee level Skin: gangrene right foot Neurologic: CN's II-XI intact bilaterally; + abnormal sensation to monofilament (no sensation right foot) and + does not move all extremities (no motion in right foot) Results & Data Vital Signs (Past 12 Hours) Vital Signs Temp Pulse Resp BP BP Pulse Ox O2 Del Method 07/23/24 10:39 36.8 C 79 17 112/71 100 Room Air 07/23/24 07:13 36.5 C 79 17 167/93 H 99 Room Air 07/23/24 03:16 36.8 C 79 17 164/72 H 100 Room Air
[2024-07-23] MEDS: oxyCODONE HCL IR 5 MG TAB (IMMEDIATE RELEASE) PO PRN (15:48)
[2024-07-24 07:21] LABS: Hematocrit (blood only) 32.9 % (42.0-52.0); Hemoglobin 9.8 g/dl (14.0-18.0); Mean Corpuscular Hemoglobin 21.7 pg (25.0-34.0); Mean Corpuscular Hgb Conc 29.8 g/dL (32.0-36.0); Mean Corpuscular Volume 72.9 fL (80.0-100.0); Platelet Count 887 K/uL (130-400); RDW Coefficient of Variation 17.8 % (11.5-14.5); RDW Standard Deviation 46.6 fL (36.4-46.3); Red Blood Count 4.51 M/uL (4.70-6.10); White Blood Count 14.65 K/ul (4.8-10.8)
[2024-07-24 07:38] LABS: BUN Creatinine Ratio 10.9 (10-20); Calcium 9.3 mg/dl (8.6-10.3); Creatinine Clr Calc Pharmacy 122.7 ml/min; Potassium 4.2 mmol/L (3.5-5.1)
[2024-07-24 11:21] VITALS: RESP 18; TEMP 97.7; O2SAT 100
--- NOTE | 2024-07-24 12:35 | Discharge Summary ---
Date of Service July 24, 2024 Admission HPI Per Admitting Provider Patient is 53 year old male with PMH DM II, HTN, HLD, CAD s/p CABG, PVD s/p reported right arterial bypass presented to ER with c/o "black right foot". Patient reports 09/2023 had noted black area to right toe which has progressed over the past 8 months. He reports at previous correctional facility was treated with antibiotics and had seen a physician who had recommended amputation. Patient reports he was not interested in amputation and area has been treated with local wound care with iodine and bandaging.He denies any noted injury or trauma to the area. Patient reports area is painful to foot and ankle. Has been using Tylenol and tramadol for pain. He reports has had progressive edema to right lower extremity over the past several months. Denies any noted fever or chills. He reports decreased appetite. Reports recently transferred to [facility] and since being there was recommended for patient to seek urgent treatment for right foot in which he agreed to today.Denies N/V/D/C, OSWALD, dizziness, syncope, CP, SOB, palpitations, cough, sore throat, rhinorrhea, abdominal pain, extremity weakness, other rashes, urinary symptoms. Admission Exam Per Admitting Provider General: no distress, thin male appears older than stated age Head: normocephalic, atraumatic Eyes: conjunctiva non-injected, anicteric ENT: normal inspection external ears, nose, mucous membranes moist Neck: supple, trachea midline Lungs: clear, no respiratory distress, no wheezing/rhonchi/rales CV: RRR, no murmur Abd: normal BS, soft, non-tender Ext: no cyanosis. RLE: +healed surgical scar, +edema lower leg with faint erythema lower leg and ankle. right foot: +necrosis mid foot to distal toes, +ulceration lateral foot, +tenderness to palpation ankle and foot Neuro: A&O x 3, no focal deficits noted, normal affect Skin: warm, dry Principal Diagnosis Right foot gangrene Discharge Exam Constitutional + well hydrated; no acute distress Eyes PERRL, conjunctivae normal, anicteric sclerae ENMT external ear and nose normal, oropharynx normal Respiratory normal respiratory effort, lungs clear to auscultation Cardiovascular Rate/Rhythm: regular rate and regular rhythm Gastrointestinal (Abdomen) normal bowel sounds, soft, nontender, no hepatosplenomegaly Musculoskeletal Right foot: Black midfoot to distal toes. Swelling in ankle Neurologic PERRL, EOMI, accommodation nl, no face palsy, no dysarthria Psychiatric A+Ox3, euthymic affect Discharge Data Allergies Allergy/AdvReac Type Severity Reaction Status Date / Time No Known Allergies Allergy Unverified 07/22/24 15:37 Consultations 07/22/24 14:50 ED Decision to Admit Stat 07/22/24 17:51 Consult Orthopedic Surgery Routine Consult Vascular Surgery Routine Ordered Studies 07/22/24 12:45 US arterial duplex LE RT Stat Hospital Course (1) Gangrene of right foot: (2) Osteomyelitis: (3) PVD (peripheral vascular disease): (4) Anemia: (5) Thrombocytosis: (6) Diabetes mellitus, type II: (7) HTN (hypertension): (8) HLD (hyperlipidemia): (9) CAD (coronary artery disease): 53 year old male with PMH DM II, HTN, HLD, CAD s/p CABG, PVD s/p reported right arterial bypass presented to ER with c/o "black right foot". Patient reports 09/2023 had noted black area to right toe which has progressed over the past 8 months. Right foot gangrene Osteomyelitis Labs on admission were notable for WBC: 20, procalcitonin: 0.12, ESR: 117 Lactate: 2.6 Foot XR noted diffuse soft tiss swelling with large amount of soft tiss gas suggestive of gas-forming organisms/gas gangrene. Osteomyelitis in base of 5th proximal phalanx Attempted MRI however patient reports unable to complete Patient was started on IV Zosyn, daptomycin Orthopedic surgeon and vascular surgeon evaluated and recommended amputation Patient declined this despite multiple conversations about risk of worsening infection, sepsis and I called [facility] and updated him about findings I also informed him about patient's decision refusing surgery Patient discharged back to alf on Augmentin and Linezolid Total Time Total Time Spent Total Time Spent (In Minutes): 50 Total Time Includes: Examination of the Patient, Discharge Planning, Medication Reconciliation, Communication With Other Providers and Other Discharge Plan Discharge Items Patient Disposition: Correctional Facility Reason For Visit: NECTROTIC FOOT Discharge Diagnosis: Right foot gangrene Activity: Resume your previous activity Non-emergency contact: Primary Care Provider Call non-emergency contact if: you have any medication questions and your symptoms worsen Follow-up/Referrals: Camryn CONKLIN [Primary Care Provider] - Diet: Carb Consistent or DM2 Addtl Attending Provider Instructions: Mr Mohan You were brought to the hospital due to right foot gangrene. You were extensively evaluated however, you continue to decline surgical treatment which is the main treatment you need. Your doctor at correctional facility can continue treatment. Pending Studies at Discharge: No Stand-Alone Forms: My [facility] Skilled Items Patient informed of condition?: Yes Discharge Level of Care: Other Communicable Disease: No Discharge Prognosis: Deteriorating Lines: None Urinary Catheter: No Medications and DC Order Prescriptions: New amoxicillin-pot clavulanate 875-125 mg tablet 1 tab PO BID Qty: 28 0RF linezolid 600 mg tablet 600 mg PO BID 14 Days Qty: 28 0RF Continued aspirin 81 mg Tablet,Delayed Release (Dr/Ec) 81 mg PO DAILY tramadol 50 mg Tablet 100 mg PO TID gabapentin 300 mg Capsule 300 mg PO BID glipizide 2.5 mg Tablet 2.5 mg PO DAILY clopidogrel 75 mg Tablet 75 mg PO DAILY acetaminophen 500 mg Tablet 1,000 mg PO QID metformin 1,000 mg Tablet 1,000 mg PO BID metoprolol tartrate 50 mg Tablet 50 mg PO BID rosuvastatin 20 mg Tablet 20 mg PO HS Novolin R Regular U100 Insulin 100 unit/mL Solution 1 sliding scale dose SUBCUT USEASDIRECTD Rx Instructions: BSG 150-200 give 2 units, BSG 201-250 give 4 units, BSG 2 51-300 give 6 units, BSG 301-350 give 8 units, BSG 351-400 give 10 units, BSG> 400 give 10 units and call MD Discharge Orders: Discharge Order (Routine); Ordered 07/24/24 Ordered By: Harmony Carreon Admission Data Admit Date/Time: 07/22/24 15:21 Attending Provider: Harmony Carreon I. Admit Provider: Logan Melo Primary Care Provider: Camryn CONKLIN Other Providers: Logan Melo; Rk Glynn; Hernán Hernandez Other Interventions: Discharge Summary Assessment (RN) Last Done: 07/24/24 12:45
[2024-07-24 12:48] VITALS: BP 145/82
[2024-07-24] MEDS: LINEZOLID 600 MG TAB PO SCH (13:39)
[2024-07-24] MEDS: AMOXICILLIN/CLAVULANATE 875 MG TAB PO SCH (13:39)
[2024-07-24 14:10] VITALS: PULSE 86
--- NOTE | 2024-07-29 12:39 | Coding Query ---
SEPSIS To promote full compliance with coding requirements relating to patient care, physician participation is requested in all cases of recruiting internship uncertainty. Please assist us with the question(s) below: In responding to this query, please exercise your independent professional judgement. The fact that a question is asked does not imply that any particular answer is desired or expected. We appreciate your clarification on this issue. Throughout the medical record, you have clearly documented a localized infection and your patient has clinical evidence of a generalized sepsis or severe sepsis. The term urosepsis is a nonspecific entity and is coded as an UTI. If the patient has sepsis, severe sepsis, from an urinary source or some other source, please clarify in your response below. The medical record reflects the following clinical findings: Diabetic patient with prior vascular bypass of right leg admitted with gas gangrene, osteomyelitis and severe vascular compromise. Per not amendable to further vascular interventions. H/P mentioned Sepsis. Pt admitted with leukocytosis, neutrophilia, lactic acidemia. Please check below if applicable, the diagnosis that was treated during this inpatient stay. Thanks for your help! [place] [facility] ____ ( )Bacteremia (Nonspecific laboratory finding of bacteria in the blood) Specify Organism ( ) Present on Admission ( ) Not present on admission ( ) Unable to clinically determine ( ) Septicemia (Systemic disease associated with the presence of pathogenic microorganisms in the blood): Specify Organism ( ) Present on Admission ( ) Not present on admission ( ) Unable to clinically determine (x ) Sepsis Specify Organism Specify Associated Condition/Diagnosis (x ) Present on Admission ( ) Not present on admission ( ) Unable to clinically determine ( ) Severe Sepsis (Sepsis associated with acute organ dysfunction) Specify Organism Specify Associated Condition/Diagnosis ( ) Present on Admission ( ) Not present on admission ( ) Unable to clinically determine ( ) Septic Shock (Severe sepsis with acute circulatory failure, unexplained by other causes) ( ) Present on Admission ( ) Not present on admission ( ) Unable to clinically determine ( ) Other, patient has: MTDD
== END 2024-07-24 15:36 | DRG 871 ==
LOC: ED 12:16 → 2S 15:21 → SUATTDRO 15:21 → 2S 16:40

== ENCOUNTER 2025-06-20 15:55 | Inpatient (IN) ==
--- NOTE | 2025-06-20 16:23 | Emergency Department Note ---
Impression & Plan Gangrene of right foot, Elevated troponin, Gangrene of lower extremity, Elevated lactic acid level, Elevated procalcitonin ED Provider Note HISTORY OF PRESENT ILLNESS: Patient is a 54-year-old male presenting due to a gangrenous right foot. Patient presents from [facility]. He reportedly has been having impressively worsening wound of his right lower extremity for the last few years. Patient reports "I refuse to get it amputated so no one has been dealing with it." He reports that for the last 3 days he has been having chills and feeling more short of breath than normal. He has not been on any recent antibiotics. He reportedly was hypotensive at the facility and referred to the emergency department. Patient reports he has DNR/DNI and refuses any medical treatments other than IV antibiotics. He is alert and oriented and has decision-making capacity. He does report he understands that his wound could lead to sepsis and ultimately , and he reports "I am ready." He reports he would realistically just like to be made comfortable, because he does not want any amputation or any extravagant interventions performed on his leg. Patient was hypotensive and reportedly hypoxic with EMS prehospital and started on 4 L nasal cannula. ROS: as above PHYSICAL EXAM: Constitutional: Patient appears in no acute distress. Emaciated HENT: Head: Normocephalic and atraumatic. Eyes: EOMI, PERRL Mouth/Throat: Mucous membranes moist. Neck: Trachea midline. Neck supple. Cardiovascular: RRR, No murmurs, rubs or gallops. Intact distal pulses. Pulmonary/Chest: No respiratory distress. Breath sounds clear and equal bilaterally. No wheezes or rales. Abdominal: Abdomen soft, no tenderness, rebound or guarding. Musculoskeletal: - RLE: Dry gangrene of the RLE incorporating the entirety of the foot and extending to the mid circumferential calf. Foul smell to the area. Patient is unable to move the foot or ankle. No pulses present. Skin: Warm and dry. No rash, erythema, pallor or cyanosis Psychiatric: Appropriate mood and affect for situation. Neurological: Alert and keenly responsive. CN II-XII grossly intact, moving all extremities equally and fully. MDM: - Vitals signs showed hypotension - History obtained via patient. History as above. - Chronic conditions affecting care: HTN; HLD; DM-2; CAD (s/p bypass) - Differential diagnoses include, but are not limited to: Dry gangrene; wet gangrene; necrotizing fasciitis; severe sepsis - Order placed for continuous cardiac monitoring. At this time, monitor showed rate of 110 bpm with normal sinus rhythm, per my interpretation. - External medical records reviewed. - EKG image interpreted by myself showed normal sinus rhythm. Rate tachycardic at 106 bpm. QT 324. No acute ischemic changes. - Laboratory workup interpreted by myself showed leukocytosis (WBC 10.81) with neutrophil predominance; anemia (Hgb 7.4); elevated lactate (2.9); hyponatremia (Na 129); elevated troponin (4464.1); elevated procalcitonin (3.13) - Blood cultures obtained - CXR image reviewed and interpreted by myself negative for pneumonia, per my interpretation. - Xray imaging of right foot obtained - Patient given 2L NS in ER. Given 2g IV cefepime + 1g IV vancomycin + 500 mg IV flagyl for antibiotic coverage. - Had a thorough discussion with patient that he would not want any extravagant measures performed to keep him alive. He reports that he previously was told he needed a bypass but refused to "have my chest opened like that." He states that he is adamant he would not want a amputation of his foot even if it were lifesaving. - Discussion was had with human services case manager about patient's case and need for admission - Hospitalist consulted for admission - [facility] ASSESSMENT AND PLAN: Diagnosis: Gangrene of right foot; gangrene of right lower extremity; elevated troponin; elevated lactate; acute hyponatremia; elevated procalcitonin Plan: admit Past Med/Surg History Problem List (Updated 06/20/25 @ 22:18 by Monica Mahajan MD) Elevated procalcitonin (Acute) Elevated lactic acid level (Acute) Gangrene of lower extremity (Acute) Elevated troponin (Acute) Gangrene of right foot (Acute) Elevated troponin Thrombocytosis (Acute) Anemia CAD (coronary artery disease) HLD (hyperlipidemia) HTN (hypertension) Diabetes mellitus, type II (Acute) PVD (peripheral vascular disease) (Acute) Osteomyelitis Gangrene of right foot (Acute) Diabetes mellitus with foot ulcer and gangrene (Acute) Surgical History History of vascular surgery History of heart bypass surgery Social History Smoking Status: Unknown if ever smoked Tobacco Type: Cigarettes Hx Alcohol Use: No Hx Substance Use: Yes Last Used Substance Other:: stopped crack and thc in 2005 Preferred Language: Fijian Communication Ability: Effective Assistant Office Manager Required: No Beliefs That Will Affect Care: None Current Living Situation: Other Current Living Situation Comment: inmate Feels Safe at Home: Yes Assistive Devices: Wheelchair Allergies Allergies Allergy/AdvReac Type Severity Reaction Status Date / Time No Known Allergies Allergy Unverified 07/22/24 15:37 Home Meds Home Medications Medication Instructions Recorded Confirmed acetaminophen 500 mg tablet 1,000 mg PO QID 07/22/24 06/20/25 aspirin 81 mg tablet,delayed 81 mg PO DAILY 07/22/24 06/20/25 release clopidogrel 75 mg tablet 75 mg PO DAILY 07/22/24 06/20/25 gabapentin 300 mg capsule 300 mg PO BID 07/22/24 06/20/25 glipizide 2.5 mg tablet 2.5 mg PO DAILY 07/22/24 06/20/25 metformin 1,000 mg tablet 1,000 mg PO BID 07/22/24 06/20/25 tramadol 50 mg tablet 100 mg PO TID 07/22/24 06/20/25 docusate sodium 100 mg tablet 100 mg PO BID 06/20/25 06/20/25 rosuvastatin 5 mg tablet 5 mg PO HS 06/20/25 06/20/25 Results & Data (ED) Vital Signs Vital Signs - 24 hr 06/20/25 16:06 06/20/25 16:17 06/20/25 16:19 Temperature 36.5 C Temperature Source Oral Pulse Rate 97 H 101 H 89 Respiratory Rate 16 Blood Pressure 94/65 L Blood Pressure Mean 74 Pulse Oximetry 100 100 Oxygen Delivery Method Nasal Cannula Nasal Cannula Oxygen Flow Rate 4 4 Sepsis Recent Fever Within 48 Hours No Sepsis New/Unexplained Change in Mental Status No Sepsis Action Taken by Nursing No Action Required Laboratory Data 06/20/25 17:12 06/20/25 17:12 Lab Results 06/20/25 Range/Units 17:12 WBC 10.81 H (4.8-10.8) K/ul RBC 3.87 L (4.70-6.10) M/uL Hgb 7.4 L (14.0-18.0) g/dl Hct 25.8 L (42.0-52.0) % MCV 66.7 L (80.0-100.0) fL MCH 19.1 L (25.0-34.0) pg MCHC 28.7 L (32.0-36.0) g/dL RDW Std Deviation 48.8 H (36.4-46.3) fL RDW Coeff of Jaki 20.9 H (11.5-14.5) % Plt Count 451 H (130-400) K/uL MPV 9.8 (9.4-12.4) fL Immature Gran % (Auto) 0.5 % Neut % (Auto) 77.0 % Lymph % (Auto) 17.0 % Orange % (Auto) 5.2 % Eos % (Auto) 0.1 % Baso % (Auto) 0.2 % Neut # (Auto) 8.33 H (1.40-6.50) K/uL Lymph # (Auto) 1.84 (1.20-3.40) K/uL Orange # (Auto) 0.56 (0.11-0.59) K/uL Eos # (Auto) 0.01 (0.00-0.50) K/uL Baso # (Auto) 0.02 (0.00-0.20) K/uL Immature Gran # (Auto) 0.05 (0.01-0.20) K/uL Polychromasia 2+ Anisocytosis Present Sodium 129 L (136-145) mmol/L Potassium 4.2 (3.5-5.1) mmol/L Chloride 95 L (98-107) mmol/L Carbon Dioxide 26 (21-32) mmol/L Anion Gap 8 (3-11) BUN 33 H (6-23) mg/dl Creatinine 0.57 L (0.6-1.4) mg/dl Est Cr Clr Drug Dosing 96.5 ml/min eGFR 117.96 BUN/Creatinine Ratio 57.9 H (10-20) Glucose 233 H (70-99(Fasting)) mg/dl Lactate 2.8 H* (0.4-2.0) mmol/L Calcium 9.1 (8.6-10.3) mg/dl Magnesium 2.0 (1.7-2.4) mg/dl Total Bilirubin 0.4 (0.2-1.0) mg/dl Direct Bilirubin 0.1 (0-0.2) mg/dl AST 17 (13-39) U/L ALT 17 (7-52) U/L Alkaline Phosphatase 163 H (34-104) U/L Troponin I High Sens 4464.1 H* (0-20) pg/ml Total Protein 8.2 (6.0-8.3) gm/dl Albumin 2.4 L (3.4-5.0) gm/dl Procalcitonin 3.13 H (0-0.5) ng/ml Administered Medications Sodium Chloride (Nss) 1,000 mls @ 80 mls/hr IV .R64H10H KAMILLE Stop: 06/22/25 07:44 Last Admin: 06/20/25 22:15 Dose: 80 mls/hr Documented By: WAYNE Discontinued Medications Cefepime HCl (Maxipime 2000mg) 2,000 mg in 20 mls @ 5 mls/min IV NOW STA; Protocol Stop: 06/20/25 16:39 Last Admin: 06/20/25 17:42 Dose: 5 mls/min Documented By: azul Vancomycin HCl 1,000 mg/ (Sodium Chloride) 520 mls @ 200 mls/hr IV NOW ONE Stop: 06/20/25 19:12 Last Infusion: 06/20/25 21:55 Dose: Infused Documented By: Admin: 06/20/25 18:46 Dose: 200 mls/hr Documented By: azul Metronidazole (Flagyl) 500 mg in 100 mls @ 100 mls/hr IV NOW STA; Protocol Stop: 06/20/25 17:36 Last Infusion: 06/20/25 19:10 Dose: Infused Documented By: azul Admin: 06/20/25 17:42 Dose: 100 mls/hr Documented By: azul Sodium Chloride (Nss) 2,000 mls @ 999 mls/hr IV .Q2H1M ONE Stop: 06/20/25 18:38 Last Infusion: 06/20/25 20:24 Dose: Infused Documented By: azul Admin: 06/20/25 17:43 Dose: 999 mls/hr Documented By: azul Discharge Plan Visit Data Chief Complaint: Infection ED Provider: Monica Mahajan Discharge Problem: Gangrene of right foot, Elevated troponin, Gangrene of lower extremity, Elevated lactic acid level, Elevated procalcitonin Condition: Serious Discharge Instructions Interventions: ED Discharge Assessment Last Done: 06/20/25 21:12
[2025-06-20] MEDS ORDERED: VANCOMYCIN CONSULT ACTIVE PRN (16:37)
[2025-06-20 17:33] LABS: Hematocrit (blood only) 25.8 % (42.0-52.0); Hemoglobin 7.4 g/dl (14.0-18.0); Immature Granulocytes # (auto) 0.05 K/uL (0.01-0.20); Immature Granulocytes % (auto) 0.5 %; Mean Corpuscular Hemoglobin 19.1 pg (25.0-34.0); Mean Corpuscular Volume 66.7 fL (80.0-100.0); RDW Standard Deviation 48.8 fL (36.4-46.3); Red Blood Count 3.87 M/uL (4.70-6.10); White Blood Count 10.81 K/ul (4.8-10.8)
[2025-06-20] MEDS: CEFEPIME 2000MG 2,000 MG/20 ML SYR IV STA (17:42)
[2025-06-20] MEDS: metroNIDAZOLE 500 MG/100 ML BAG IV STA (17:42)
[2025-06-20] MEDS: SODIUM CHLORIDE 0.9% 2,000 ML IV ONE (17:43)
[2025-06-20 17:51] LABS: Alanine Aminotransferase 17.0 U/L (7-52); Albumin Level 2.4 gm/dl (3.4-5.0); Alkaline Phosphatase 163.0 U/L (34-104); Anion Gap 8.0 (3-11); Bilirubin,Total 0.4 mg/dl (0.2-1.0); Blood Urea Nitrogen 33.0 mg/dl (6-23); Calcium 9.1 mg/dl (8.6-10.3); Carbon Dioxide 26.0 mmol/L (21-32); Chloride 95.0 mmol/L (98-107); Creatinine Clr Calc Pharmacy 96.5 ml/min; Glucose 233.0 mg/dl (70-99(Fasting)); Magnesium 2.0 mg/dl (1.7-2.4); Potassium 4.2 mmol/L (3.5-5.1); Sodium 129.0 mmol/L (136-145); Total Protein 8.2 gm/dl (6.0-8.3)
[2025-06-20 17:52] LABS: Anisocytosis Present; Platelet Count 451 K/uL (130-400); Polychromasia 2+
--- NOTE | 2025-06-20 18:03 | History & Physical Report ---
Date of Service June 20, 2025 Assessment & Plan (1) Gangrene of right foot: Plan: Worsening gangrene of the right foot with possible osteomyelitis Blood cultures have been taken and the patient started with intravenous Cefepime, vancomycin and Flagylwill continue for now He definitely does not want to have any surgery knowing that without surgery is leg will not improve He wanted to have palliative care encounter and possible comfort care if condition does not improve Hyponatremia Likely secondary to contraction hyponatremia Will give cautious amount of intravenous fluid and monitor PRP (2) Diabetes mellitus with foot ulcer and gangrene: Plan: Will hold his metformin and glipizide Continue with insulin and sliding scale (3) Elevated troponin: Plan: Doubt any ACS Noted to have a troponin of 4464 EKG showed J-point elevation in V 1-3 Discussed with the survey rodman and likely that troponin is due to gangrene with elevated CK and MB fraction Will change admission to [facility] with telemetry and cycle 2 sets of troponins Echocardiogram Will get CK and CK-MB (4) PVD (peripheral vascular disease): (5) Anemia: Plan: Hemoglobin is 7.4 with low MCV Likely anemia of chronic disease and also iron deficiency (6) Thrombocytosis: Plan: Platelet count is 451 secondary to infection (7) CAD (coronary artery disease): Plan: History of CAD and bypass surgery Does not have any cardiac symptoms (8) HLD (hyperlipidemia): Plan: Will continue statin (9) HTN (hypertension): Plan: Blood pressure remains low at 94/65 Will hold blood pressure medicine for now DVT prophylaxis Subcu heparin given the increased risk of thrombosis and embolism CODE STATUS DNR/DNI History of Present Illness Chief Complaint: Worsening right leg gangrene Primary Care Provider: KATERIN Cowan Is a 54-year-old male significant past medical history of type 2 diabetes, hypertension, hyperlipidemia, CAD status post CABG, and peripheral vascular disease distress with reported right arterial bypass came to emergency room from senior living with complaints of worsening right leg cellulitis/gangrene. He complains to have foul-smelling and feeling of chills at times but no documented temperature. He does not have any increasing pain in the wounds. Denies any fever and/or chills, denies any abdominal pain nausea no vomiting, any chest pain or palpitation no shortness of breath. Apparently he has been bedbound. Clearly he does not want to have any surgery but wanted to have antibiotic for the infection He wanted to to have comfort care down the line if the condition does not get any better. He was started with intravenous cefepime, vancomycin and Flagyl and was admitted to [facility] for continuation of care. Palliative care consultation will be taken. Allergies Allergy/AdvReac Type Severity Reaction Status Date / Time No Known Allergies Allergy Unverified 07/22/24 15:37 Home Medications Medication Instructions Recorded Confirmed Type acetaminophen 500 mg tablet 1,000 mg PO QID 07/22/24 06/20/25 History aspirin 81 mg tablet,delayed 81 mg PO DAILY 07/22/24 06/20/25 History release clopidogrel 75 mg tablet 75 mg PO DAILY 07/22/24 06/20/25 History gabapentin 300 mg capsule 300 mg PO BID 07/22/24 06/20/25 History glipizide 2.5 mg tablet 2.5 mg PO DAILY 07/22/24 06/20/25 History metformin 1,000 mg tablet 1,000 mg PO BID 07/22/24 06/20/25 History tramadol 50 mg tablet 100 mg PO TID 07/22/24 06/20/25 History docusate sodium 100 mg tablet 100 mg PO BID 06/20/25 06/20/25 History rosuvastatin 5 mg tablet 5 mg PO HS 06/20/25 06/20/25 History Past Med/Surg History Problem List (Updated 06/20/25 @ 18:59 by Logan Melo MD) Elevated troponin Thrombocytosis (Acute) Anemia CAD (coronary artery disease) HLD (hyperlipidemia) HTN (hypertension) Diabetes mellitus, type II (Acute) PVD (peripheral vascular disease) (Acute) Osteomyelitis Gangrene of right foot (Acute) Diabetes mellitus with foot ulcer and gangrene (Acute) Surgical History History of vascular surgery History of heart bypass surgery Social History Smoking Status: Unknown if ever smoked Tobacco Type: Cigarettes Hx Alcohol Use: No Hx Substance Use: Yes Last Used Substance Other:: stopped crack and thc in 2005 Preferred Language: Portuguese Communication Ability: Effective Teen Counselor Required: No Beliefs That Will Affect Care: None Current Living Situation: Other Current Living Situation Comment: inmate Feels Safe at Home: Yes Assistive Devices: Wheelchair Review of Systems Review of Systems: All systems reviewed and are unremarkable except as noted below Physical Exam Physical Exam: Lying in bed with some distress due to pain in the right leg Constitutional: + ill appearing and + thin Eyes: PERRL, conjunctivae normal, anicteric sclerae ENMT: external ear and nose normal, oropharynx normal Neck: trachea midline, no thyromegaly Respiratory: no respiratory distress Auscultation: lungs clear to auscultation bilaterally Cardiovascular: Rate/Rhythm: regular rate and regular rhythm; not tachycardic Heart Sounds: normal S1 and normal S2; no murmur Extremities: + edema (2+ edema on left, gangrene from below knee involving the foot on the right) Musculoskeletal: Osteoarthritic changes involving the joints but no acute arthritis Skin: Gangrenous right leg and foot with foul-smelling and occasional drainage Neurologic: normal touch/pain/proprioception and moves all extremities (Is generalized weakness) Lymphatic: no cervical or axillary lymphadenopathy Results & Data Results & Data Vital Signs (Past 12 Hours) Vital Signs Temp Pulse Resp BP Pulse Ox O2 Del Method O2 Flow Rate 06/20/25 16:19 89 06/20/25 16:17 101 H 100 Nasal Cannula 4 06/20/25 16:06 36.5 C 97 H 16 94/65 L 100 Nasal Cannula 4 Laboratory Results Short CBC 06/20/25 Range/Units 17:12 WBC 10.81 H (4.8-10.8) K/ul Hgb 7.4 L (14.0-18.0) g/dl Hct 25.8 L (42.0-52.0) % Plt Count 451 H (130-400) K/uL BMP 06/20/25 17:12 Sodium 129 L Potassium 4.2 Chloride 95 L Carbon Dioxide 26 BUN 33 H Creatinine 0.57 L Glucose 233 H Calcium 9.1 Liver Function 06/20/25 Range/Units 17:12 Total Bilirubin 0.4 (0.2-1.0) mg/dl Direct Bilirubin 0.1 (0-0.2) mg/dl AST 17 (13-39) U/L ALT 17 (7-52) U/L Alkaline Phosphatase 163 H (34-104) U/L Albumin 2.4 L (3.4-5.0) gm/dl Medications Administered Current Inpatient Medications Vancomycin HCl 1,000 mg/ (Sodium Chloride) 520 mls @ 200 mls/hr IV NOW ONE Stop: 06/20/25 19:12 Sodium Chloride (Nss) 2,000 mls @ 999 mls/hr IV .Q2H1M ONE Stop: 06/20/25 18:38 Last Admin: 06/20/25 17:43 Dose: 999 mls/hr Miscellaneous Information (Vancomycin Consult Active) 1 each N/A UD PRN PRN Reason: Consult Stop: 07/20/25 16:36 Code Status & VTE Plan VTE Prophylaxis Plan VTE Prophylaxis will be ordered: Yes
[2025-06-20] MEDS ORDERED: GLUCOSE 40% GEL 15 GM TUBE PO PRN (18:38)
[2025-06-20] MEDS ORDERED: GLUCAGON FOR INJ 1 MG VIAL SQ PRN (18:38)
[2025-06-20] MEDS ORDERED: GLUCOSE 10 TAB/TUBE PO PRN (18:38)
[2025-06-20] MEDS ORDERED: CARBOHYDRATES FOR HYPOGLYCEMIA PO PRN (18:38)
[2025-06-20] MEDS ORDERED: DEXTROSE 50% 50 ML SYRINGE IV PRN (18:38)
[2025-06-20] MEDS: VANCOMYCIN HCL 1,000 MG in SODIUM CHLORIDE 0.9% 500 ML IV ONE (18:46)
[2025-06-20] MEDS: SODIUM CHLORIDE 0.9% 1,000 ML IV SCH (22:15)
[2025-06-20] MEDS: METOPROLOL TARTRATE 25 MG TAB PO SCH (22:28)
[2025-06-20] MEDS: INSULIN ASPART PER UNIT CHARGE SC SCH (22:43)
[2025-06-20] MEDS: LANTUS PER UNIT CHARGE SQ SCH (22:43)
[2025-06-20] MEDS: ROSUVASTATIN CALCIUM 20 MG TAB PO SCH (22:45)
[2025-06-20] MEDS: LACTATED RINGER'S 1,000 ML IV ONE (22:45)
[2025-06-20] MEDS: GABAPENTIN 300 MG CAP PO SCH (22:45)
[2025-06-20] MEDS: DOCUSATE SODIUM 100 MG CAP PO SCH (22:45)
[2025-06-21] MEDS: VANCOMYCIN 750 MG in SODIUM CHLORIDE 0.9% 250 ML IV SCH ×2 (00:04→12:55)
--- NOTE | 2025-06-21 01:47 | Communication Note ---
Date of Service: June 21, 2025 135 AM Made aware by RN of worsening lactic acidosis 8.2 from 2.9 SBP 80s. IVF bolus and midodrine ordered (Patient refused surgery as per admission H&P. Palliative care encounter and possible comfort care if condition does not improve with medical management as per note.) 2 AM Code purple called due to persistent hypotension, SBP 70s and decreased mentation as per RN. Goals of care established on admission reviewed with patient. Patient agreeable to transitioning to comfort measures. call worker person updated by staff of patient decision.
[2025-06-21] MEDS ORDERED: ACETAMINOPHEN 325 MG TAB PO PRN (01:50)
[2025-06-21] MEDS: LACTATED RINGER'S 1,000 ML IV SCH (01:51)
[2025-06-21] MEDS: metroNIDAZOLE 500 MG/100 ML BAG IV SCH ×2 (01:57→12:55)
[2025-06-21] MEDS: KETOROLAC TROMETHAMINE 15 MG/ML VIAL IV ONE (01:57)
[2025-06-21] MEDS: CEFEPIME 2000MG 2,000 MG/20 ML SYR IV SCH ×2 (01:57→12:55)
[2025-06-21] MEDS: MIDODRINE HCL 2.5 MG TAB PO STA (01:59)
[2025-06-21] MEDS ORDERED: ATROPINE SULFATE 1% OP SOLN 5 ML BTL SL PRN ×2 (02:13→12:56)
[2025-06-21] MEDS ORDERED: GLYCOPYRROLATE 0.2 MG/ML VIAL IV PRN ×2 (02:13→12:56)
[2025-06-21] MEDS ORDERED: ONDANSETRON INJ 2 MG/ML 2 ML VIAL IV PRN (02:13)
[2025-06-21] MEDS ORDERED: LORazepam Inj 0.5 MG in SYRINGE 0.25 ML IV PRN ×2 (02:13→12:56)
[2025-06-21] MEDS ORDERED: HYOSCYAMINE SULFATE 0.125 MG TAB SL PRN (02:13)
[2025-06-21 02:19] VITALS: RESP 22; TEMP 97.7; O2SAT 96
[2025-06-21] MEDS: MoRPHine SULFATE 4 MG/ML 1 ML CARP\\VIAL IV PRN (02:29)
--- NOTE | 2025-06-21 06:47 | Electrocardiogram Report ---
Test Reason : Blood Pressure : */* mmHG Vent. Rate : 106 BPM Atrial Rate : 106 BPM P-R Int : 104 ms QRS Dur : 78 ms QT Int : 324 ms P-R-T Axes : -18 -11 162 degrees QTcB Int : 430 ms Sinus tachycardia with short NM Inferior infarct , age undetermined Abnormal ECG No previous ECGs available Confirmed by Efraín Ko ([id number]) on 06/21/2025 6:46:48 AM Referred By: Camryn COKNLIN Confirmed By: Efraín Ko
--- NOTE | 2025-06-21 07:11 | XRay Report ---
EXAM: XR chest 1V portable CLINICAL HISTORY: Sepsis TECHNIQUE: An X-ray image of the chest was obtained in AP projection. COMPARISON: No prior studies are available for comparison. FINDINGS: Pulmonary Parenchyma: The lungs are hyperinflated, which is a nonspecific finding. The lungs are clear bilaterally. There is no evidence of consolidation, collapse, or focal opacities. No pulmonary nodules are identified. There is no evidence of pleural effusion or pleural thickening. Heart and Mediastinum: The heart size and shape are normal. There is no mediastinal widening or masses. No hilar or mediastinal lymphadenopathy is identified. Bony Thorax: The bony thorax appears intact, without fractures or deformities. Soft Tissues: The soft tissues overlying the chest wall are unremarkable. IMPRESSION: No acute cardiopulmonary abnormalities are identified. Electronically signed by Michael Cedeno 06-21-2025 07:09 AM
--- NOTE | 2025-06-21 07:58 | XRay Report ---
EXAM: XR foot RT 2V CLINICAL HISTORY: Gangrene foot TECHNIQUE: X-ray images of the right foot were obtained in lateral and oblique projections. No AP view. COMPARISON: Prior X-ray dated 07/22/2024. FINDINGS: Bone Structure: Diffuse osteopenia with subcortical bone resorption. Distal 5th metatarsal bone shaft bone defect with mild distal bone displacement. Joint Spaces: Degenerative changes are noted in the scanned joints. Soft Tissues: Diffuse soft tissue thickening, edema, and innumerable air opacities involving the lower leg, ankle, and proximal foot, likely infective. New. Additional Findings: Atherosclerotic vascular calcifications are present. High longitudinal arch of the foot. IMPRESSION: 1. Diffuse soft tissue thickening, edema, and innumerable air opacities involving the lower leg, ankle, and proximal and mid foot, likely infective/gangrenous. New and increased in comparison with the prior study on 07/22/2024. 2. Increased osteopenic density of the scanned bones and subcortical bone resorption, possibly secondary to complex regional pain syndrome. Progressive. 3. Distal 5th metatarsal bone shaft bone defect with mild distal bone displacement. Stable. 4. Mild regressive mid/distal foot soft tissue thickening, edema, and air opacities. 5. High longitudinal arch of the foot. Stable. 6. Clinical correlation is advised. Disclaimer: A subtle bone abnormality or fracture may not be readily apparent on X-rays, thus clinical correlation and further imaging including follow-up CT, MRI, or follow-up X-rays are advised as needed. Electronically signed by Michael Cedeno 06-21-2025 07:58 AM
[2025-06-21] MEDS ORDERED: CLOPIDOGREL BISULFATE 75 MG TAB PO SCH (09:00)
[2025-06-21] MEDS ORDERED: HEPARIN SOD 5,000 UNIT/0.5 ML VIAL SQ SCH (09:00)
[2025-06-21] MEDS ORDERED: ASPIRIN 81 MG ECTAB PO SCH (09:00)
[2025-06-21] MEDS ORDERED: VANCOMYCIN CONSULT ACTIVE PRN (09:24)
[2025-06-21] MEDS ORDERED: VANCOMYCIN HCL 750 MG in SODIUM CHLORIDE 0.9% 250 ML IV SCH (09:30)
[2025-06-21] MEDS ORDERED: MoRPHine SULFATE 4 MG/ML 1 ML CARP\\VIAL IV PRN ×2 (09:32→12:54)
--- NOTE | 2025-06-21 09:32 | Hospitalist Progress Note ---
Date of Service June 21, 2025 Assessment & Plan (1) Gangrene of right foot: Plan: Sepsis secondary to above Worsening gangrene of the right foot with possible osteomyelitis blood cultures pending Lactic acid increased to 8 from 2 Palliative care service consulted, met with patient Patient confirmed he does not want to pursue medical Lower surgical treatment at this point, and would only like to be comfortable patient transition to comfort measures status only Patient to continue with hospice care services at [facility] better Discussed with palliative care service Candice Trujillo Also discussed with [facility] better physician Dr. Anguiano Hyponatremia Likely secondary to contraction hyponatremia given IV fluids (2) Diabetes mellitus with foot ulcer and gangrene: Plan: Will hold his metformin and glipizide Continue with insulin and sliding scale (3) Elevated troponin: Plan: Doubt any ACS Noted to have a troponin of 4464 EKG showed J-point elevation in V 1-3 Discussed with the fish farmer and likely that troponin is due to gangrene with elevated CK and MB fraction -- troponin trended down denies chest pain (4) PVD (peripheral vascular disease): (5) Anemia: Plan: Hemoglobin is 7.4 with low MCV Likely anemia of chronic disease and also iron deficiency (6) Thrombocytosis: Plan: Platelet count is 451 secondary to infection (7) CAD (coronary artery disease): Plan: History of CAD and bypass surgery Does not have any cardiac symptoms (8) HLD (hyperlipidemia): (9) HTN (hypertension): Plan: Blood pressure remains low at 94/65 Will hold blood pressure medicine for now DVT prophylaxis Subcu heparin given the increased risk of thrombosis and embolism CODE STATUS DNR/DNI Admission and Anticipated Discharge Date Admission Date: June 20, 2025 Subjective awake, alert, oriented x 3 states he feels fine overall states he does not remember talking to any physician yesterday re: comfort measures states he wants to try antibiotics minimal pain over the right foot no other symptoms Review of Systems Review of Systems: all noted and negative except for above Physical Exam Physical Exam: General- oriented x 3, not in distress, speaks in sentences with no effort or accessory muscle use Eyes- anicteric Neck- no JVD Lungs- clear breath sounds bilaterally, no rales/wheezes Heart- normal rate, regular rhythm; no murmurs Abdomen- normal bowel sounds, nondistended, soft, nontender Extremities- no pretibial edema, no calf tenderness gangrene of the R foot and lower leg Neuro- alert, oriented x 3; no gross focal neurologic deficits Skin- warm & dry Results & Data Results & Data Vital Signs (Past 12 Hours) Vital Signs Temp Pulse Pulse Resp BP BP Pulse Ox 06/21/25 02:05 36.5 C 114 H 22 75/40 L 96 06/20/25 23:27 98 06/20/25 22:30 113 H 103/68 06/20/25 21:55 105 H 06/20/25 21:46 36.7 C 108 H 20 98/60 L 100 O2 Del Method O2 Flow Rate 06/21/25 02:05 Nasal Cannula 2 06/20/25 23:27 Nasal Cannula 2 06/20/25 22:30 06/20/25 21:55 06/20/25 21:46 Nasal Cannula 4 all noted and reviewed including below
[2025-06-21] MEDS ORDERED: VANCOMYCIN 750 MG in SODIUM CHLORIDE 0.9% 250 ML IV SCH (09:45)
[2025-06-21] MEDS: SODIUM CHLORIDE 0.9% 1,000 ML IV SCH (10:04)
[2025-06-21 10:44] VITALS: BP 90/56
[2025-06-21 10:49] VITALS: PULSE 93
--- NOTE | 2025-06-21 11:18 | Pharmacy Report ---
Pharmacy PK ABX Note - Date of Service June 21, 2025 - Assessment and Plan Assessment 54 year old M receiving vancomycin, cefepime, and metronidazole for treatment of sepsis secondary to gangrene of the right foot/possible osteomyelitis. Patient reportedly with worsening wound of right lower extremity for the last few years. Last 3 days with chills, increased SOB, and hypotension. He has reportedly refused amputation of the extremity in the past. * Pertinent microbiologic data includes: Negative MRSA Nasal Swab, Blood cultures x 2 from 06/20 are pending Day # 2 of antimicrobial therapy. Plan Vancomycin * Loading dose: 1000 mg IV x 1 on 06/20 * Maintenance dose: 750 mg IV every 8 hours * Regimen is predicted to achieve target AUC/SULAIMAN of 400-600 mg/L.hr * Random level ordered for: 06/22 at 0900 cefepime 2gm iv q 8 hours. metronidazole 500mg iv q 8 hours Pharmacy will continue to follow and will adjust dose/frequency as necessary. Thank you. Pharmacy has transitioned to AUC monitoring for vancomycin. AUC/SULAIMAN is the preferred PK/PD target and is associated with decreased risk of nephrotoxicity compared to traditional trough targets.
[2025-06-21] MEDS ORDERED: MIDODRINE HCL 2.5 MG TAB PO SCH (12:00)
[2025-06-21] MEDS ORDERED: HALOPERIDOL ORAL SOLN 2 MG/ML PO PRN ×2 (12:56)
[2025-06-21] MEDS ORDERED: ONDANSETRON 4 MG OD TAB SL PRN (12:56)
--- NOTE | 2025-06-21 13:00 | Palliative Care Consultation ---
Date of Consultation June 21, 2025 Assessment & Plan (1) Pain associated with wound: Pt c/o ache in RLE (2) Lethargy: (3) Palliative care by specialist: Introduced Palliative Medicine and explained our role in advanced care planning, symptom management and navigation through the progression of life limiting disease. Patient was receptive to palliative services for goals of care discussions. Reviewed we are different from hospice, a home health nurse visiting service. (4) Counseling regarding goals of care: Met with pt at bedside from 09:30 - 10 ;00, no visitors present, but two guards from [employer] present. Pt shared that he had decided "months ago" that he does "not want any aggressive treatments, no surgery and no life support machines". He shared that he will not accept any invasive interventions for his heart or his leg. He requests that we "just keep me comfortable". He shared knowledge that refusing invasive procedures and IV ABx may lead to his and stated that he is acceptant of this. He shared that he does not want to , but that he does not want to just prolong dying with IV ABx and he will not accept surgery for attempt at source control. We discussed options for ongoing care of continuing diagnostics and life prolonging therapies or transition to comfort directed approach, where no further diagnostics or life prolonging treatments would be offered and focus would be on comfort while allowing for a peaceful natural . Pt shared that he is "ready to " but does not wish to suffer. Pt requests transition to [employer] at this time, he shared that he especially does not want any further labs or IV access and requested PO medications for symptom mgmt due to fear of needles. Discussed with him that if he remains stable he will likely return to long-term for ongoing comfort directed care. (5) Comfort measures only status: Comfort plan of care parameters: 1. Patient/Family want hospice added to their care. 2. NO rehab/PT/OT 3. Strictly End of Life care only 4. NO escalation of care: do not increase oxygen, escalate therapies, etc. The focus is on comfort through end of life, assure this is accomplished with aggressive symptom management (i.e. relief of dyspnea, pain, etc.) 5. NO return to hospital 6. NO labs, imaging, surgery 7. Oral intake as desired for comfort and pleasure: NO dietary restriction, Allow permissive aspiration, do not withhold food or drink for concern of aspiration and allow PO for pleasure and comfort. 8. If difficulty urinating/commode/bedpan, ok to place Nava catheter for comfort/hygiene/skin protection AND/OR Continue Nava catheter for comfort/hygiene/skin protection 9. NO: calorie counts, artificial nutrition, feeding tubes or IV fluids EOL Symptom manamgement: Pain/dyspnea/tachypnea morphine 2mg IVP PRN [id number] Consider titratable morphine drip if pt requires >3 PRN doses in under two consecutive hours. Nausea/vomitting zofran 4mg ODT q4h PRN Agitation ativan 0.5mg ODT q4h PRN Hyperactive delirium haldol 5mg IVP q6h PRN Secretions - if repositioning not effective robinul 0.4mg IV q4h PRN atropine SL 3 drops Q1h PRN Nursing care: Discontinue all medications not directed towards comfort. Detether pt from IV tubing, monitor cables, and check vitals once per shift. Please continue HFNC and titrate down as able for patient comfort. Use medications above PRN for dyspnea/tachypnea and do not increase oxygen once titrated down. Assess q1h for pain/dyspnea and treat accordingly. Plan [employer], plan for discharge back to [facility] for ongoing hospice care. History of Present Illness Reason for Consultation: goals of care Requesting Physician: Rafael Lu MD Attending Physician: Rafael Lu MD History of Present Illness Mr Mohan is a 54-year-old male significant past medical history of type 2 diabetes, hypertension, hyperlipidemia, CAD status post CABG, and peripheral vascular disease distress with reported right arterial bypass came to emergency room from long-term with complaints of worsening right leg cellulitis/gangrene. Allergies Allergy/AdvReac Type Severity Reaction Status Date / Time No Known Allergies Allergy Unverified 07/22/24 15:37 Home Medications Medication Instructions Recorded Confirmed Type acetaminophen 500 mg tablet 1,000 mg PO QID 07/22/24 06/20/25 History aspirin 81 mg tablet,delayed 81 mg PO DAILY 07/22/24 06/20/25 History release clopidogrel 75 mg tablet 75 mg PO DAILY 07/22/24 06/20/25 History gabapentin 300 mg capsule 300 mg PO BID 07/22/24 06/20/25 History glipizide 2.5 mg tablet 2.5 mg PO DAILY 07/22/24 06/20/25 History metformin 1,000 mg tablet 1,000 mg PO BID 07/22/24 06/20/25 History tramadol 50 mg tablet 100 mg PO TID 07/22/24 06/20/25 History docusate sodium 100 mg tablet 100 mg PO BID 06/20/25 06/20/25 History rosuvastatin 5 mg tablet 5 mg PO HS 06/20/25 06/20/25 History Patient History Surgical History History of vascular surgery History of heart bypass surgery Social History Smoking Status: Former smoker Tobacco Type: Cigarettes Hx Alcohol Use: No Hx Substance Use: Yes Last Used Substance Other:: stopped crack and thc in 2005 Preferred Language: Turkmen Communication Ability: Effective Shank Turner Required: No Beliefs That Will Affect Care: None Current Living Situation: Other Current Living Situation Comment: inmate Feels Safe at Home: Yes Assistive Devices: Wheelchair Review of Systems Review of Systems: All systems reviewed & are unremarkable except as noted in HPI & below Physical Exam Constitutional: + ill appearing, + cachectic, + frail ap pearing, cooperative and comfortable Eyes: PERRL, conjunctivae normal, anicteric sclerae Neck: trachea midline, no thyromegaly Respiratory: normal respiratory effort, lungs clear to auscultation Cardiovascular: Rate/Rhythm: + irregularly irregular Extremities: normal capillary refill; no edema Gastrointestinal (Abdomen): normal bowel sounds, soft, nontender, no hepatosplenomegaly Neurologic: PERRL, EOMI, accommodation nl, no face palsy, no dysarthria Psychiatric: A+Ox3, euthymic affect Results & Data Vital Signs (Past 12 Hours) Vital Signs Temp Pulse Pulse Resp BP BP Pulse Ox 06/21/25 10:49 93 H 06/21/25 10:43 90/56 L 06/21/25 02:05 36.5 C 114 H 22 75/40 L 96 O2 Del Method O2 Flow Rate 06/21/25 10:49 06/21/25 10:43 06/21/25 02:05 Nasal Cannula 2 Laboratory Results Abnormal lab results 06/20/25 06/20/25 06/20/25 Range/Units 17:12 19:05 22:10 WBC 10.81 H (4.8-10.8) K/ul RBC 3.87 L (4.70-6.10) M/uL Hgb 7.4 L (14.0-18.0) g/dl Hct 25.8 L (42.0-52.0) % MCV 66.7 L (80.0-100.0) fL MCH 19.1 L (25.0-34.0) pg MCHC 28.7 L (32.0-36.0) g/dL RDW Std Deviation 48.8 H (36.4-46.3) fL RDW Coeff of Jaki 20.9 H (11.5-14.5) % Plt Count 451 H (130-400) K/uL Neut # (Auto) 8.33 H (1.40-6.50) K/uL Sodium 129 L (136-145) mmol/L Chloride 95 L (98-107) mmol/L BUN 33 H (6-23) mg/dl Creatinine 0.57 L (0.6-1.4) mg/dl BUN/Creatinine Ratio 57.9 H (10-20) Glucose 233 H (70-99(Fasting)) mg/dl POC Glucose 339 H* (70-99) mg/dl Lactate 2.8 H* 2.9 H* (0.4-2.0) mmol/L Alkaline Phosphatase 163 H (34-104) U/L Troponin I High Sens 4464.1 H* 3284.5 H* D (0-20) pg/ml Albumin 2.4 L (3.4-5.0) gm/dl Procalcitonin 3.13 H (0-0.5) ng/ml 06/21/25 06/21/25 Range/Units 00:51 02:07 WBC (4.8-10.8) K/ul RBC (4.70-6.10) M/uL Hgb (14.0-18.0) g/dl Hct (42.0-52.0) % MCV (80.0-100.0) fL MCH (25.0-34.0) pg MCHC (32.0-36.0) g/dL RDW Std Deviation (36.4-46.3) fL RDW Coeff of Jaki (11.5-14.5) % Plt Count (130-400) K/uL Neut # (Auto) (1.40-6.50) K/uL Sodium (136-145) mmol/L Chloride (98-107) mmol/L BUN (6-23) mg/dl Creatinine (0.6-1.4) mg/dl BUN/Creatinine Ratio (10-20) Glucose (70-99(Fasting)) mg/dl POC Glucose 117 H (70-99) mg/dl Lactate 8.2 H* (0.4-2.0) mmol/L Alkaline Phosphatase (34-104) U/L Troponin I High Sens 3619.7 H* (0-20) pg/ml Albumin (3.4-5.0) gm/dl Procalcitonin (0-0.5) ng/ml Diagnostic Findings Chest X-Ray 06/20/25 16:17 EXAM: XR chest 1V portable CLINICAL HISTORY: Sepsis TECHNIQUE: An X-ray image of the chest was obtained in AP projection. COMPARISON: No prior studies are available for comparison. FINDINGS: Pulmonary Parenchyma: The lungs are hyperinflated, which is a nonspecific finding. The lungs are clear bilaterally. There is no evidence of consolidation, collapse, or focal opacities. No pulmonary nodules are identified. There is no evidence of pleural effusion or pleural thickening. Heart and Mediastinum: The heart size and shape are normal. There is no mediastinal widening or masses. No hilar or mediastinal lymphadenopathy is identified. Bony Thorax: The bony thorax appears intact, without fractures or deformities. Soft Tissues: The soft tissues overlying the chest wall are unremarkable. IMPRESSION: No acute cardiopulmonary abnormalities are identified. Electronically signed by Michael Cedeno 06-21-2025 07:09 AM Foot X-Ray 06/20/25 16:38 EXAM: XR foot RT 2V CLINICAL HISTORY: Gangrene foot TECHNIQUE: X-ray images of the right foot were obtained in lateral and oblique projections. No AP view. COMPARISON: Prior X-ray dated 07/22/2024. FINDINGS: Bone Structure: Diffuse osteopenia with subcortical bone resorption. Distal 5th metatarsal bone shaft bone defect with mild distal bone displacement. Joint Spaces: Degenerative changes are noted in the scanned joints. Soft Tissues: Diffuse soft tissue thickening, edema, and innumerable air opacities involving the lower leg, ankle, and proximal foot, likely infective. New. Additional Findings: Atherosclerotic vascular calcifications are present. High longitudinal arch of the foot. IMPRESSION: 1. Diffuse soft tissue thickening, edema, and innumerable air opacities involving the lower leg, ankle, and proximal and mid foot, likely infective/gangrenous. New and increased in comparison with the prior study on 07/22/2024. 2. Increased osteopenic density of the scanned bones and subcortical bone resorption, possibly secondary to complex regional pain syndrome. Progressive. 3. Distal 5th metatarsal bone shaft bone defect with mild distal bone displacement. Stable. 4. Mild regressive mid/distal foot soft tissue thickening, edema, and air opacities. 5. High longitudinal arch of the foot. Stable. 6. Clinical correlation is advised. Disclaimer: A subtle bone abnormality or fracture may not be readily apparent on X-rays, thus clinical correlation and further imaging including follow-up CT, MRI, or follow-up X-rays are advised as needed. Electronically signed by Michael Cedeno 06-21-2025 07:58 AM Medications Administered Current Inpatient Medications Atropine Sulfate (Atropine Sulfate 1% Op Soln 5 Ml Btl) 4 drops SL Q1H PRN PRN Reason: Secretions or pulm congestion Stop: 07/21/25 12:55 Glycopyrrolate (Glycopyrrolate 0.2 Mg/Ml Vial) 0.4 mg IV Q4H PRN PRN Reason: Rattling Secretions or Pulm Congestion Stop: 07/21/25 12:55 Haloperidol (Haloperidol Oral Soln 2 Mg/Ml) 0.5 mg PO Q4H PRN PRN Reason: Nausea &/or Vomiting Stop: 07/21/25 12:55 Haloperidol (Haloperidol Oral Soln 2 Mg/Ml) 0.5 mg PO Q4H PRN PRN Reason: Anxiety/Agitation Stop: 07/21/25 12:55 Lorazepam 0.5 mg/ Syringe 0.5 mls @ 2 mls/min IV Q4H PRN PRN Reason: Anxiety/Agitation Stop: 07/21/25 12:55 Morphine Sulfate (Morphine Sulfate 4 Mg/Ml 1 Ml Carp\\Vial) 3 mg IV Q1H PRN PRN Reason: Pain or dyspnea keep RR<20 Stop: 07/05/25 09:31 Ondansetron HCl (Ondansetron Inj 2 Mg/Ml 2 Ml Vial) 4 mg IV Q4H PRN PRN Reason: Nausea &/or Vomiting Stop: 07/21/25 02:12 Ondansetron HCl (Ondansetron 4 Mg Od Tab) 4 mg SL Q4H PRN PRN Reason: Nausea &/or Vomiting Stop: 07/21/25 12:55 Oxycodone HCl (Oxycodone Hcl Ir 5 Mg Tab (Immediate Release)) 5 mg PO Q6H PRN PRN Reason: moderate to severe pain Stop: 07/05/25 09:31 PG Care Time/CCT Total # of Minutes Spent Total Time Spent with Patient: Total time spent is greater than 50% in coordination of care (as documented) at patient's floor/unit and/or counseling patient: Advanced Care Planning 24813 Advanced Care Planning 30 [place] [address] IN/OBS CONSULT LVL 4,60M Patient Type New History Expanded Problem Focused Exam Expanded Problem Focused Medical Decision Making Moderate Complexity Diagnoses Pain associated with wound T14.8XXA; R52 Lethargy R53.83 Palliative care by specialist Z51.5 Counseling regarding goals of care Z71.89 Comfort measures only status Z51.5 Additional Codes Advanced Care Planning - 11541 Advanced Care Planning 30 Min: 19332 Advanced Care Planning 30 Min ([id number])
--- NOTE | 2025-06-21 13:56 | Discharge Summary ---
Discharge Summary Date of Service June 21, 2025 Principal Dx & Hospital Course #1 = Principal Diagnosis (1) Gangrene of right foot: Sepsis secondary to above Worsening gangrene of the right foot with possible osteomyelitis blood cultures pending Lactic acid increased to 8 from 2 Palliative care service consulted, met with patient Patient confirmed he does not want to pursue medical Lower surgical treatment at this point, and would only like to be comfortable patient transition to comfort measures status only Patient to continue with hospice care services at [facility] better Discussed with palliative care service Candice Trujillo Also discussed with [facility] better physician Dr. Anguiano Hyponatremia Likely secondary to contraction hyponatremia given IV fluids (2) Diabetes mellitus with foot ulcer and gangrene: Will hold his metformin and glipizide Continue with insulin and sliding scale (3) Elevated troponin: Doubt any ACS Noted to have a troponin of 4464 EKG showed J-point elevation in V 1-3 Discussed with the chain maker and likely that troponin is due to gangrene with elevated CK and MB fraction -- troponin trended down denies chest pain (4) PVD (peripheral vascular disease): (5) Anemia: Hemoglobin is 7.4 with low MCV Likely anemia of chronic disease and also iron deficiency (6) Thrombocytosis: Platelet count is 451 secondary to infection (7) CAD (coronary artery disease): History of CAD and bypass surgery Does not have any cardiac symptoms (8) HLD (hyperlipidemia): (9) HTN (hypertension): Blood pressure remains low at 94/65 Will hold blood pressure medicine for now DVT prophylaxis Subcu heparin given the increased risk of thrombosis and embolism CODE STATUS DNR/DNI Notes For Next Care Provider Medication Changes From Visit d/c all medications except for comfort measures Admission HPI Per Admitting Provider Is a 54-year-old male significant past medical history of type 2 diabetes, hypertension, hyperlipidemia, CAD status post CABG, and peripheral vascular disease distress with reported right arterial bypass [facility] with complaints of worsening right leg cellulitis/gangrene. He complains to have foul-smelling and feeling of chills at times but no documented temperature. He does not have any increasing pain in the wounds. Denies any fever and/or chills, denies any abdominal pain nausea no vomiting, any chest pain or palpitation no shortness of breath. Apparently he has been bedbound. Clearly he does not want to have any surgery but wanted to have antibiotic for the infection He wanted to to have comfort care down the line if the condition does not get any better. He was started with intravenous cefepime, vancomycin and Flagyl and was admitted to [facility] for continuation of care. Palliative care consultation will be taken. Admission Exam Per Admitting Provider Physical Exam: Lying in bed with some distress due to pain in the right leg Constitutional: + ill appearing and + thin Eyes: PERRL, conjunctivae normal, anicteric sclerae ENMT: external ear and nose normal, oropharynx normal Neck: trachea midline, no thyromegaly Respiratory: no respiratory distress Auscultation: lungs clear to auscultation bilaterally Cardiovascular: Rate/Rhythm: regular rate and regular rhythm; not tachycardic Heart Sounds: normal S1 and normal S2; no murmur Extremities: + edema (2+ edema on left, gangrene from below knee involving the foot on the right) Musculoskeletal: Osteoarthritic changes involving the joints but no acute arthritis Skin: Gangrenous right leg and foot with foul-smelling and occasional drainage Neurologic: normal touch/pain/proprioception and moves all extremities (Is generalized weakness) Lymphatic: no cervical or axillary lymphadenopathy Discharge Exam General- oriented x 3, not in distress, speaks in sentences with no effort or accessory muscle use Eyes- anicteric Neck- no JVD Lungs- clear breath sounds bilaterally, no rales/wheezes Heart- normal rate, regular rhythm; no murmurs Abdomen- normal bowel sounds, nondistended, soft, nontender Extremities- no pretibial edema, no calf tenderness gangrene of the R foot and lower leg Neuro- alert, oriented x 3; no gross focal neurologic deficits Skin- warm & dry Updated Medication List Medication Instructions Recorded Confirmed Type acetaminophen 500 mg tablet 1,000 mg PO QID 07/22/24 06/20/25 History aspirin 81 mg tablet,delayed 81 mg PO DAILY 07/22/24 06/20/25 History release clopidogrel 75 mg tablet 75 mg PO DAILY 07/22/24 06/20/25 History gabapentin 300 mg capsule 300 mg PO BID 07/22/24 06/20/25 History glipizide 2.5 mg tablet 2.5 mg PO DAILY 07/22/24 06/20/25 History metformin 1,000 mg tablet 1,000 mg PO BID 07/22/24 06/20/25 History tramadol 50 mg tablet 100 mg PO TID 07/22/24 06/20/25 History docusate sodium 100 mg tablet 100 mg PO BID 06/20/25 06/20/25 History rosuvastatin 5 mg tablet 5 mg PO HS 06/20/25 06/20/25 History Hospital Stay Data Consultations 06/20/25 17:49 ED Decision to Admit Stat 06/20/25 18:40 Consult Palliative Care Routine 06/21/25 09:25 Consult Orthopedic Surgery Routine Procedures Performed Laboratory Results WBC 10.81 K/ul (4.8-10.8) H 06/20/25 17:12 RBC 3.87 M/uL (4.70-6.10) L 06/20/25 17:12 Hgb 7.4 g/dl (14.0-18.0) L 06/20/25 17:12 Hct 25.8 % (42.0-52.0) L 06/20/25 17:12 MCV 66.7 fL (80.0-100.0) L 06/20/25 17:12 MCH 19.1 pg (25.0-34.0) L 06/20/25 17:12 MCHC 28.7 g/dL (32.0-36.0) L 06/20/25 17:12 RDW Std Deviation 48.8 fL (36.4-46.3) H 06/20/25 17:12 RDW Coeff of Jaki 20.9 % (11.5-14.5) H 06/20/25 17:12 Plt Count 451 K/uL (130-400) H 06/20/25 17:12 MPV 9.8 fL (9.4-12.4) 06/20/25 17:12 Immature Gran % (Auto) 0.5 % 06/20/25 17:12 Neut % (Auto) 77.0 % 06/20/25 17:12 Lymph % (Auto) 17.0 % 06/20/25 17:12 Saline % (Auto) 5.2 % 06/20/25 17:12 Eos % (Auto) 0.1 % 06/20/25 17:12 Baso % (Auto) 0.2 % 06/20/25 17:12 Neut # (Auto) 8.33 K/uL (1.40-6.50) H 06/20/25 17:12 Lymph # (Auto) 1.84 K/uL (1.20-3.40) 06/20/25 17:12 Saline # (Auto) 0.56 K/uL (0.11-0.59) 06/20/25 17:12 Eos # (Auto) 0.01 K/uL (0.00-0.50) 06/20/25 17:12 Baso # (Auto) 0.02 K/uL (0.00-0.20) 06/20/25 17:12 Immature Gran # (Auto) 0.05 K/uL (0.01-0.20) 06/20/25 17:12 Polychromasia 2+ 06/20/25 17:12 Anisocytosis Present 06/20/25 17:12 Sodium 129 mmol/L (136-145) L 06/20/25 17:12 Potassium 4.2 mmol/L (3.5-5.1) 06/20/25 17:12 Chloride 95 mmol/L (98-107) L 06/20/25 17:12 Carbon Dioxide 26 mmol/L (21-32) 06/20/25 17:12 Anion Gap 8 (3-11) 06/20/25 17:12 BUN 33 mg/dl (6-23) H 06/20/25 17:12 Creatinine 0.57 mg/dl (0.6-1.4) L 06/20/25 17:12 Est Cr Clr Drug Dosing 96.5 ml/min 06/20/25 17:12 eGFR 117.96 06/20/25 17:12 BUN/Creatinine Ratio 57.9 (10-20) H 06/20/25 17:12 Glucose 233 mg/dl (70-99(Fasting)) H 06/20/25 17:12 POC Glucose 117 mg/dl (70-99) H 06/21/25 02:07 Lactate 8.2 mmol/L (0.4-2.0) H* 06/21/25 00:51 Calcium 9.1 mg/dl (8.6-10.3) 06/20/25 17:12 Magnesium 2.0 mg/dl (1.7-2.4) 06/20/25 17:12 Total Bilirubin 0.4 mg/dl (0.2-1.0) 06/20/25 17:12 Direct Bilirubin 0.1 mg/dl (0-0.2) 06/20/25 17:12 AST 17 U/L (13-39) 06/20/25 17:12 ALT 17 U/L (7-52) 06/20/25 17:12 Alkaline Phosphatase 163 U/L (34-104) H 06/20/25 17:12 Troponin I High Sens 3619.7 pg/ml (0-20) H* 06/21/25 00:51 Total Protein 8.2 gm/dl (6.0-8.3) 06/20/25 17:12 Albumin 2.4 gm/dl (3.4-5.0) L 06/20/25 17:12 Procalcitonin 3.13 ng/ml (0-0.5) H 06/20/25 17:12 Nasal Screen MRSA (PCR) Negative (Negative) 06/21/25 00:10 Impressions Chest X-Ray 06/20/25 16:17 EXAM: XR chest 1V portable CLINICAL HISTORY: Sepsis TECHNIQUE: An X-ray image of the chest was obtained in AP projection. COMPARISON: No prior studies are available for comparison. FINDINGS: Pulmonary Parenchyma: The lungs are hyperinflated, which is a nonspecific finding. The lungs are clear bilaterally. There is no evidence of consolidation, collapse, or focal opacities. No pulmonary nodules are identified. There is no evidence of pleural effusion or pleural thickening. Heart and Mediastinum: The heart size and shape are normal. There is no mediastinal widening or masses. No hilar or mediastinal lymphadenopathy is identified. Bony Thorax: The bony thorax appears intact, without fractures or deformities. Soft Tissues: The soft tissues overlying the chest wall are unremarkable. IMPRESSION: No acute cardiopulmonary abnormalities are identified. Electronically signed by Michael Cedeno 06-21-2025 07:09 AM Foot X-Ray 06/20/25 16:38 EXAM: XR foot RT 2V CLINICAL HISTORY: Gangrene foot TECHNIQUE: X-ray images of the right foot were obtained in lateral and oblique projections. No AP view. COMPARISON: Prior X-ray dated 07/22/2024. FINDINGS: Bone Structure: Diffuse osteopenia with subcortical bone resorption. Distal 5th metatarsal bone shaft bone defect with mild distal bone displacement. Joint Spaces: Degenerative changes are noted in the scanned joints. Soft Tissues: Diffuse soft tissue thickening, edema, and innumerable air opacities involving the lower leg, ankle, and proximal foot, likely infective. New. Additional Findings: Atherosclerotic vascular calcifications are present. High longitudinal arch of the foot. IMPRESSION: 1. Diffuse soft tissue thickening, edema, and innumerable air opacities involving the lower leg, ankle, and proximal and mid foot, likely infective/gangrenous. New and increased in comparison with the prior study on 07/22/2024. 2. Increased osteopenic density of the scanned bones and subcortical bone resorption, possibly secondary to complex regional pain syndrome. Progressive. 3. Distal 5th metatarsal bone shaft bone defect with mild distal bone displacement. Stable. 4. Mild regressive mid/distal foot soft tissue thickening, edema, and air opacities. 5. High longitudinal arch of the foot. Stable. 6. Clinical correlation is advised. Disclaimer: A subtle bone abnormality or fracture may not be readily apparent on X-rays, thus clinical correlation and further imaging including follow-up CT, MRI, or follow-up X-rays are advised as needed. Electronically signed by Michael Cedeno 06-21-2025 07:58 AM Pending Results Patient Have Any Pending Studies at Discharge: No Discharge Instructions Given to Patient (Per Discharging Provider) Continue hospice care services at [facility]. Total Time Total Time Spent Total Time Spent (In Minutes): 60 minutes
[2025-06-22] MEDS ORDERED: VANCOMYCIN LEVEL ONE (09:00)
== END 2025-06-21 15:31 | DRG 872 ==
LOC: ED 15:55 → SUATTDRO 17:45 → 2W 17:45